=== PATIENT | female | born 1955 | race Caucasian/White ===

== ENCOUNTER 2019-12-10 12:26 | Outpatient (CLI) | payer MEDICARE, SELFPAY ==
--- NOTE | ~2019-12-10 | XR_ITS ---
EXAMINATION: XR lg joint inject/asp w image DATE: 12/10/2019 13:36 INDICATION: Right sacroiliac joint pain TECHNIQUE: A time-out was performed to verify the patient's name, date of , and procedure to b e performed. The procedure including the risks, benefits, and alternatives was discussed with the pat ient. Risks discussed included bleeding and infection. The patient understood the risks and agreed to proceed. The skin overlying the right sacroiliac joint was prepped and draped in usual sterile fash ion. Anesthetic was administered with 1% lidocaine subcutaneously. A 22 G needle was advanced under fluoroscopic guidance into the joint. Injection of 0.4 mL of Omnipaque 240 confirmed intra-articula r position of the needle. Subsequently, injectate consisting of 5 mm of a 4:1 mixture of 1% lidocain e: 40 mg Kenalog for a total dosage of 40 mg Kenalog was instilled. Washout of contrast was seen conf irming intra-articular administration. The needle was removed and the entry site was cleaned and dres sed. There were no immediate complications. Fluoroscopy exposure time was 0.5 minutes. The total num camille of images was 3. FINDINGS: Real-time fluoroscopy demonstrates the needle in the right sacroiliac joint. Patient's pain prior to procedure:5/10. Patient's pain following the procedure: 2/10. IMPRESSION: 1. Right sacroiliac joint injection of local anesthetic and steroid with decrease in the patient's pr esenting pain. Reviewed, dictated and finalized at location A. IMPRESSION: 1. Right sacroiliac joint injection of local anesthetic and steroid with decrea se in the patient's presenting pain.
== END 2019-12-10 12:27 | disposition home or self-care (01) ==
PROVIDERS: Visit Provider Nurse Practitioner Adult Health
DX: M53.3 Sacrococcygeal disorders, not elsewhere classified (principal)
CPT/HCPCS: 20610; 77002; J3301; Q9966

== ENCOUNTER → 2020-03-16 09:41 | Outpatient (CLI) | payer MEDICARE, SELFPAY ==
--- NOTE | ~2020-03-16 | MM_ITS ---
EXAMINATION: MM screening nilda BI w smith HISTORY: Screening mammogram, family history of breast cancer in her mother. TECHNIQUE: Craniocaudal and mediolateral oblique 3-D tomosynthesis images were obtained and synthetic 2-D images were generated. CAD analysis was submitted and interpreted. COMPARISON: 02/01/2018, 09/15/2016 BREAST PARENCHYMAL COMPOSITION: The breasts are almost entirely fatty. FINDINGS: There is no evidence of suspicious mass, calcification, or architectural distortion to sugg est malignancy in either breast. There has been no suspicious interval change. IMPRESSION: 1. No mammographic evidence of malignancy. 2. Recommend routine screening mammography in one year. BI-RADS Category 1: Negative Reviewed, dictated and finalized at location A.
== END ==
DX: Z12.31 Encounter for screening mammogram for malignant neoplasm of breast (principal)
CPT/HCPCS: 77063; 77067

== ENCOUNTER 2021-03-08 16:22 | Outpatient (CLI) | payer MEDICARE, SELFPAY ==
--- NOTE | ~2021-03-08 | US_ITS ---
US thyroid 03/08/2021 16:52 Indication: Status post thyroidectomy. Procedure: High-resolution ultrasound of the thyroid bed Comparison: 03/09/2017 Findings: There is normal echotexture in the thyroid bed. No discrete mass identified. Impression: 1: No residual thyroid tissue. No abnormalities in the thyroid bed. Reviewed, dictated and finalized at location A. Impression: 1: No residual thyroid tissue. No abnormalities in the thyroid bed.
== END 2021-03-08 16:23 | disposition home or self-care (01) ==
PROVIDERS: Visit Provider Internal Medicine Endocrinology, Diabetes & Metabolism
DX: C73 Malignant neoplasm of thyroid gland (principal)
CPT/HCPCS: 76536

== ENCOUNTER 2022-06-17 19:26 | Emergency (ER) | payer MEDICARE, SELFPAY ==
[2022-06-17] VITALS (23 sets, daily range): BP systolic 121–157; BP diastolic 53–96; PULSE 48–82; RESP 12–35; TEMP 36.6–36.8; O2SAT 72–100
--- NOTE | ~2022-06-17 | XR_ITS ---
EXAMINATION: XR chest 2V DATE: 06/17/2022 20:38 INDICATION: Chest pain. TECHNIQUE: Frontal and lateral views of the chest were obtained. COMPARISON: Chest 2 views 07/23/2008 FINDINGS: There is no pneumonia, pleural effusion, or pneumothorax. Cardiomegaly is noted. There are changes of anterior fusion procedure in cervical spine. Surgical clips in the right upper quadrant ar e likely from cholecystectomy. There is mild chronic height loss of multiple midthoracic vertebral camryn dies. IMPRESSION: 1. Cardiomegaly. Reviewed, dictated and finalized at location A. ER COMPOUNDER MIXER IMPRESSION: 1. Cardiomegaly.
--- NOTE | ~2022-06-17 | CT_ITS ---
EXAMINATION: CTA chest PE protocol DATE: 06/17/2022 22:32 INDICATION: Midsternal chest pain. TECHNIQUE: Computed tomography angiography (CTA) of the chest was performed with 100 mL Omnipaque-350 intravenous contrast timed to evaluate the pulmonary arteries. Coronal maximum intensity projection 3D-reconstructions were created by the technologist. Automated exposure control and iterative reconst ruction technique were employed. The dose-length product was 1002.22 mGy-cm. COMPARISON: Chest 2 views 06/17/2022 FINDINGS: There are multiple 1 to 2 mm nodules in the lungs, likely benign. There is a pneumatocele i n right lower lobe. No pleural effusion. The heart size is normal. No pericardial effusion. There is no pulmonary embolus. The central pulmonary arteries are enlarged, consistent with pulmonary arterial hypertension. There is a small sliding hiatal hernia. There are changes of cholecystectomy. There ar e changes of anterior fusion procedure in cervical spine. There is moderate thoracic spondylosis. The re are bridging endplate osteophytes at multiple levels in the spine, consistent with diffuse idiopat hic skeletal hyperostosis (DISH). There is mild chronic height loss of multiple vertebral bodies. IMPRESSION: 1. No pulmonary embolus. 2. Small sliding hiatal hernia. Reviewed, dictated and finalized at location A. PER COUNTERS
--- NOTE | 2022-06-17 20:08 | ECG_ITS ---
Measurements Intervals Hope Rate: 47 P: 36 CO: 209 QRS: 31 QRSD: 101 T: 66 QT: 434 QTc: 386 Interpretive Statements SINUS BRADYCARDIA OTHERWISE UNREMARKABLE ECG NO PREVIOUS ECG AVAILABLE FOR COMPARISON Electronically Signed On 06-18-2022 9:45:30 FURNITURE ASSEMBLER AND INSTALLER by Eric Mckeon M.D.
--- NOTE | 2022-06-17 20:37 | ED.CHESTPAIN ---
HPI - Chest Pain General Chief Complaint: Chest Pain Stated Complaint: chest pain Time Seen by Provider: 06/17/22 20:09 Source: patient and RN notes reviewed Mode of arrival: ambulatory Limitations: no limitations History of Present Illness HPI narrative: This is a 66 year old female who presents for evaluation of chest pain. Patient has noticed midsternal chest soreness for 2 weeks. She states her soreness has been intermittent. She assumed it was due to her having more frequent panic attacks. Today her soreness has been constant and she reports pain in her left shoulder and left neck. She reports she woke up with pain last night. She took her xanax and she fell back asleep. She woke up this morning with her pain. She denies associated nausea, diaphoresis, sob or dizziness. She reports her symptoms are not worse with exertion. She denies heart disease. She had stress test in 2001. Related Data Allergies Allergy/AdvReac Type Severity Reaction Status Date / Time No Known Allergies Allergy Unknown Verified 07/23/08 22:01 NKDA Allergy Mild Uncoded 07/23/08 17:28 Review of Systems Constitutional: Constitutional: Denies weakness Cardiovascular: Cardiovascular: Reports chest pain, Denies syncope, Denies rapid heart rate, Denies irregular heart rhythm, Denies leg edema and Denies dyspnea Respiratory: Respiratory: Denies chest congestion, Denies hemoptysis, Denies excessive phlegm production and Denies dyspnea Gastrointestinal: Gastrointestinal: Denies abdominal pain, Denies hematochezia, Denies diarrhea and Denies vomiting Genitourinary: Genitourinary: Denies hematuria and Denies dysuria Musculoskeletal: Musculoskeletal: Denies joint swelling, Denies loss of height and Denies muscle weakness Neurologic: Denies syncope, Denies focal weakness and Denies weakness PMFSH Past Medical History Medical History (Updated 06/17/22 @ 23:49 by Ivette Cotton MD) Anxiety Hypertension Surgical History Surgical History (Updated 06/17/22 @ 20:45 by Ivette Cotton MD) H/O thyroidectomy History of cholecystectomy Social History Social History (Updated 06/17/22 @ 20:44 by Ivette Cotton MD) Smoking status: Never smoker Exam Narrative: GENERAL: Well-appearing, well-nourished, and in no acute distress. obese HEAD: Normocephalic, atraumatic EYES: PERRLA and EOMI, conjunctiva clear without discharge THROAT:Mucous membranes moist, Oropharynx normal without erythema, exudate, peritonsillar swelling or fluctuance NECK: Supple, without lymphadenopathy or mass RESPIRATORY: No respiratory distress, Airway patent, Respirations non-labored, Clear to auscultation without rales, rhonchi or wheeze HEART: Regular rate and rhythm. No murmur heard. Normal peripheral pulses. reproducible chest wall tenderness ABDOMEN: Soft, nontender, nondistended, normal active bowel sounds. No masses. No rebound or guarding, No organomegaly. EXTREMITIES: No edema, normal strength with full range of motion. SKIN: Warm, dry, normal color without rash NEURO: Alert and oriented x3. CN 2-12 grossly intact. No focal deficits. PSYCH: Normal mood and affect. Neuro: Speech: No Abnormal speech present Course Reevaluation(s) Reevaluation #1: I have discussed with patient that no signs of heart attack. She has had negative troponin x 2. She has heart score of 3 so she is low risk. She has appointment set up with primary care provider. CT was negative for PE. I reviewed CT with patient shows possible pulmonary hypertension. She denies shortness of breath. Her pain is atypical and non exertional. She will be discharged home with follow up and return precautions. Date: 06/17/22 Time: 23:46 Vital Signs Vital signs: Vital Signs Temperature 97.9 F 06/17/22 19:33 Pulse Rate 82 06/17/22 19:33 Respiratory Rate 16 06/17/22 19:33 Oxygen Delivery Room Air 06/17/22 19:33 Temperature 98.1 F 06/18/22 00:05 Pulse Rate 58 L 06/18/22
[2022-06-17 20:43] LABS: Basophils Absolute Auto 0.1 K/mm3 (0.0-0.1); Basophils Percent Auto 0.9 % (0.2-1.2); Eosinophils Absolute Auto 0.2 K/mm3 (0-0.3); Eosinophils Percent Auto 3.1 % (0-4.4); Hematocrit 39.3 % (37.0-47.0); Hemoglobin 12.6 g/dL (12.0-15.0); Immature Granulocyte Absolute 0.01 K/mm3 (0.00-0.031); Immature Granulocyte Percent A 0.1 % (0-0.5); Lymphocytes Absolute Auto 2.63 K/mm3 (0.9-3.2); Lymphocytes Percent Auto 39.2 % (18.3-44.2); Mean Corpuscular HGB Conc 32.1 g/dl (32-36); Mean Corpuscular Hemoglobin 29.6 pg (26-34); Mean Corpuscular Volume 92.5 fl (80-100); Mean Platelet Volume 9.1 fl (7.4-10.4); Monocytes Absolute Auto 0.7 K/mm3 (0.1-0.6); Monocytes Percent Auto 10.1 % (2.6-8.5); Neutrophils Absolute Auto 3.1 K/mm3 (1.3-6.7); Neutrophils Percent Auto 46.6 % (45.5-73.1); Platelet Count Result 272 k/mm3 (150-375); Red Blood Count 4.25 M/mm3 (4.2-5.4); Red Cell Distribution Width 14.6 % (11.5-14.5); White Blood Count 6.7 K/mm3 (4.5-10.0)
[2022-06-17 20:54] LABS: Prothrombin Time 13.2 Seconds (11.1-14.7)
[2022-06-17 20:55] LABS: Alanine Aminotransferase 20 U/L (6-35); Albumin Level 3.9 g/dL (3.5-5.1); Alkaline Phosphatase 84 U/L (38-126); Anion Gap 5 mmol/L (8-16); Aspartate Amino Transferase 27 U/L (14-36); Bilirubin,Total 0.4 mg/dL (0.2-1.3); Blood Urea Nitrogen 23 mg/dL (7-17); Calcium 8.5 mg/dL (8.4-10.2); Carbon Dioxide 30 mmol/L (22-30); Chloride 103 mmol/L (98-107); Estimated CRCL calculation 56 ml/min; Estimated Glomerular Filt Rate 45; Glucose 116 mg/dL (65-110); Lipase 83 U/L (23-300); Partial Thromboplastin Time 28.6 SECONDS (22.3-36.8); Potassium 4.5 mmol/L (3.4-5.0); Sodium 138 mmol/L (137-145)
[2022-06-17 21:06] LABS: Troponin I < 0.012 ng/mL (0.000-0.034)
[2022-06-17] MEDS: ASPIRIN 81 MG CHEWABLE TABLET 324 MG PO (21:28)
[2022-06-17 22:02] LABS: D Dimer 0.63 ug/mL (<0.48)
[2022-06-17] MEDS: KETOROLAC 15 MG/ML VIAL (*BKC) IV PUSH (23:03)
[2022-06-17 23:40] LABS: Troponin I < 0.012 ng/mL (0.000-0.034)
[2022-06-18 00:05] VITALS: BP 127/75; PULSE 58; RESP 18; TEMP 36.7; O2SAT 100
== END 2022-06-18 00:07 | disposition home or self-care (01) ==
PROVIDERS: Emergency Provider General Practice
DX: R07.89 Other chest pain (principal); I10 Essential (primary) hypertension; E89.0 Postprocedural hypothyroidism; K44.9 Diaphragmatic hernia without obstruction or gangrene; I51.7 Cardiomegaly; R00.1 Bradycardia, unspecified
CPT/HCPCS: 36415; 71046; 71275; 80053; 83690; 84484; 85025; 85380; 85610; 85730; 93005; 96374; 99284; A9270; J1885; Q9967

== ENCOUNTER 2023-03-03 10:00 | Outpatient (RCR) | payer MEDICARE, SELFPAY ==
--- NOTE | 2023-01-12 14:42 | OPREHPOC ---
Outpatient Therapy Plan of Care This is a Multidisciplinary Plan of Care that may contain components documented by all disciplines (PT, OT, and ST.) PT Problem 1 PT Problem #1 Knowledge Deficit PT Goal 1 Goal 1. Patient will perform independent HEP Target Visit 4 PT Goal 2 Goal 2. Patient will verbalize urge suppression strategies Target Visit 4 PT Problem 2 PT Problem #2 Pain PT Goal 1 Goal 1. Patient will tolerate pelvic exam without pain Target Visit 4 PT Goal 2 Goal 2. Patient will report pain with urination no higher than 1/10 Target Visit 4 PT Problem 3 PT Problem #3 Impaired Strength PT Goal 1 Goal 1. Improve pelvic floor strength to 3/5 to decrease incontinence
--- NOTE | 2023-01-12 14:42 | PTOPEVAL1 ---
Assessment and note entered by Renae Gomez DPT Evaluation Information Assessment Status Evaluation Subjective Information Pt reports she had a UTI in early November, then symptoms came back a few weeks later but urine culture was negative. Was sent to a urologist and had a CT scan which was negative. States she is getting a lot of pain with urination and also pain into her flanks R>L. Highest pain 10/10 and lowest 0/10. Some urinary incontinence, a few times a day. Reports urgency and can only hold 30 seconds . BM typically once a day without pain. Denies history of pelvic pain, history of 2 C- sections. Voices that when she is having a lot of pain she does not want to do anything. Pt is retired. Returns to [place] in January. Patient goal: get rid of pain. No pelvic/flank pain prior to November. Reported Pain Level Pain Score 8: Self Report Assessment PT Clinical Summary The patient is presenting to skilled therapy with painful urination, flank pain, and urinary urgency . She presents with pain with palpation of pelvic floor muscles as well as overall decreased pelvic floor strength and endurance which are contributing to her pain and urinary symptoms. She will highly benefit from therapy to address these impairments and safely return to prior level of function. Plan of Care Interventions Electrical Stimulation,Hot Pack/Cold Pack,Manual Therapy,Neuro Re-education,Patient/Caregiver Education,Therapeutic Activities,Therapeutic Exercise PT Services Indicated Yes Treatment Frequency and 1 time a week for 3 weeks Duration These treatments will address the objective and functional deficits as defined above. The patient will be advanced safely and appropriately in order for the patient to progress towards his/her prior level of function. Additional exercises will be introduced and as well as a comprehensive home exercise program upon discharge, if needed, ?to ensure carryover of functional gains achieved in the clinic. This treatment plan has been reviewed and agreement upon by the patient.
--- NOTE | 2023-02-03 12:22 | OPREHPOC ---
Outpatient Therapy Plan of Care This is a Multidisciplinary Plan of Care that may contain components documented by all disciplines (PT, OT, and ST.) PT Problem 1 PT Problem #1 Knowledge Deficit PT Goal 1 Goal 1. Patient will perform independent HEP Target Visit 9 Progress Partially Met Comment new HEP added today PT Goal 2 Goal 2. Patient will verbalize urge suppression strategies Target Visit 9 Progress Not Met PT Problem 2 PT Problem #2 Pain PT Goal 1 Goal 1. Patient will tolerate pelvic exam without pain Target Visit 4 Progress Met PT Goal 2 Goal 2. Patient will report pain with urination no higher than 1/10 Target Visit 9 Progress Partially Met PT Problem 3 PT Problem #3 Impaired Strength PT Goal 1 Goal 1. Improve pelvic floor strength to 3/5 to decrease incontinence Target Visit 9 Progress Not Met PT Goal 2 Goal 2. Improve pelvic floor endurance to 10 seconds to decrease incontinence Target Visit 9
--- NOTE | 2023-02-03 12:22 | PTOPPROG ---
Assessment and note entered by Renae Gomez DPT Evaluation Information Assessment Status Progress Subjective Information Highest pain in last week 3/10 and lowest 0/10. Feels great with therapy. States she is able to walk better and has returned to walking for exercise because her pain is lower. Can hold urine 2-5 minutes and urinary incontinence maybe every other day . Still would like to further address pain and incontinence. Assessment PT Clinical Summary The patient has made good progress in therapy so far and reports greatly decreased pain to 3/10 highest. She reports improvements in her ability to walk without pain, and demonstrates improved hip strength, no tenderness to palpation of hip or pelvic floor musculature, and demonstrates slight pelvic floor endurance improvements. She will continue to benefit from skilled therapy to further address pain and incontinence in order to return to prior level of function. Plan of Care Interventions Manual Therapy,Neuro Re-education,Patient/ Caregiver Education,Therapeutic Activities, Therapeutic Exercise PT Services Indicated Yes Treatment Frequency and 1 time a week for 4 visits Duration These treatments will address the objective and functional deficits as defined above. The patient will be advanced safely and appropriately in order for the patient to progress towards his/her prior level of function. Additional exercises will be introduced and as well as a comprehensive home exercise program upon discharge, if needed, ?to ensure carryover of functional gains achieved in the clinic. This treatment plan has been reviewed and agreement upon by the patient.
--- NOTE | 2023-03-03 10:27 | OPREHPOC ---
Outpatient Therapy Plan of Care This is a Multidisciplinary Plan of Care that may contain components documented by all disciplines (PT, OT, and ST.) PT Problem 1 PT Problem #1 Knowledge Deficit PT Goal 1 Goal 1. Patient will perform independent HEP Target Visit 9 Progress Met Comment new HEP added today PT Goal 2 Goal 2. Patient will verbalize urge suppression strategies Target Visit 9 Progress Met PT Problem 2 PT Problem #2 Pain PT Goal 1 Goal 1. Patient will tolerate pelvic exam without pain Target Visit 4 Progress Met PT Goal 2 Goal 2. Patient will report pain with urination no higher than 1/10 Target Visit 9 Progress Met PT Problem 3 PT Problem #3 Impaired Strength PT Goal 1 Goal 1. Improve pelvic floor strength to 3/5 to decrease incontinence Target Visit 9 Progress Not Met PT Goal 2 Goal 2. Improve pelvic floor endurance to 10 seconds to decrease incontinence Target Visit 9 Progress Partially Met Comment improved to 8 seconds
--- NOTE | 2023-03-03 10:27 | PTOPDC ---
Assessment and note entered by Renae Gomez DPT Evaluation Information Assessment Status Discharge Subjective Information Highest pain in the last week 6-7/10 after drinking iced tea over the weekend. Lowest pain 0/ 10. Most days is not having pain at this point. Incontinence maybe 2 times in the last week, again after drinking iced tea. Overall feels that therapy is continuing to help and her pain has significantly decreased and is able to control her bladder more. Can hold urge to void variable amounts of time but has been able to hold longer like when getting her hair done or grocery shopping. Reported Pain Level Pain Score 0: Self Report Assessment PT Clinical Summary The patient has made good progress in therapy and reports significant decreases to her pain and decreased frequency of incontinence. She demonstrates improved pelvic floor endurance and improved core strength. Due to her progress, discharge is recommended at this time. She has been educated to continue her HEP and contact MD and/or PT as needed. Plan of Care PT Services Indicated No
== END 2023-03-03 11:57 | disposition home or self-care (01) ==
LOC: ANHPT 10:00
PROVIDERS: Visit Provider Obstetrics & Gynecology
DX: R10.2 Pelvic and perineal pain (principal); R10.9 Unspecified abdominal pain; R30.0 Dysuria; N39.41 Urge incontinence
CPT/HCPCS: 97110; 97112; 97140; 97162; 97530

== ENCOUNTER 2024-03-03 13:02 | Observation (INO) | payer MEDICARE, SELFPAY ==
[2024-03-03] VITALS (7 sets, daily range): BP systolic 119–153; BP diastolic 55–97; PULSE 48–68; RESP 15–20; TEMP 36.4–36.6; O2SAT 96–100; BMI 46.7
--- NOTE | ~2024-03-03 | CT_ITS ---
CT brain wo con Ordering provider: Keerthi Wynne MD History: 68 years Female with . r/o cva . Comparison: July 08, 2009 Technique: CT of the head without contrast. Radiation reduction technique utilized.The dose-length product was 605.33 mGy-cm. FINDINGS: BRAIN PARENCHYMA AND CSF SPACES: No midline shift, mass effect or hemorrhage. The brain parenchyma a nd CSF spaces are otherwise normal. VISUALIZED PARANASAL SINUSES: Well aerated. MASTOIDS: Well aerated. BONES: The bones appear intact. SOFT TISSUES: Visualized nasopharynx is normal. Superficial soft tissues are normal. IMPRESSION: No acute intracranial findings. Reviewed, dictated and finalized at location A.
--- NOTE | ~2024-03-03 | XR_ITS ---
XR chest 1V Ordering provider: Keerthi Wynne MD History: 68 years Female with . r/o CVA, LEFT SIDED WEAKNESS . Comparison: June 17, 2022 FINDINGS: MEDIASTINUM: The cardiac silhouette is slightly enlarged. LUNGS: No , effusions or pneumothorax. Minimal opacification the left costophrenic angle which may be atelectatic versus focal pneumonia. Clinical correlation advised. OTHER: No free air under the diaphragm. Degenerative changes of the spine. IMPRESSION: Opacification the left costophrenic angle which may indicate atelectasis versus pneumonia. Clinical c orrelation advised Reviewed, dictated and finalized at location A. IMPRESSION: Opacification the left costophrenic angle which may indicate atelectasis versus pneumonia. Clinical correlation advised
--- NOTE | ~2024-03-03 | CT_ITS ---
CTA brain carotid Ordering provider: Mei Fontaine PA-C History: . left sided paresthesias . Comparison: None. Technique: CT angiogram head and neck was performed following timed intravenous injection of contrast . Thin slice axial images and reformatted coronal images were obtained. Three dimensional reformatted images of the brain were also obtained using a [employer] workstation. Radiation reduction technique ut ilized.The dose-length product was 1059.86 mGy-cm. 100 mL Omnipaque 350 was given IV. FINDINGS: HEAD: --ANTERIOR AND MIDDLE CEREBRAL ARTERIES AND BRANCHES: Normal caliber and contour. --INTERNAL CAROTID ARTERIES: Mild atheromatous disease but no significant stenosis. No occlusion. --BASILAR ARTERY AND BRANCHES: Normal caliber and contour. No atheromatous disease. --POSTERIOR CEREBRAL ARTERIES: Normal caliber and contour --POSTERIOR COMMUNICATING ARTERIES: The left demonstrated. The right 9is not visualized which is prob ably related to congenital absence or small size. --ANEURYSM: None visualized. --BRAIN: Please refer to report of CT head performed the same day. --BONES AND SUPERFICIAL SOFT TISSUES: Please refer to report of CT head performed the same day. --PARANASAL SINUSES AND MASTOIDS: Please refer to report of CT head done the same day. NECK: --RIGHT CERVICAL CAROTID SYSTEM: Normal caliber and contour. Percent stenosis per NASCET criteria is 0%. No carotid dissection. Otherwise, no significant atheromatous disease or stenosis of the cervica l carotid system. --LEFT CERVICAL CAROTID SYSTEM: Normal caliber and contour. Percent stenosis per NASCET criteria is 0%.0 No carotid dissection. Otherwise, no significant atheromatous disease or stenosis of the cervical carotid system. --VERTEBRAL ARTERIES: Dominant left vertebral artery. Normal caliber and contour. --VISUALIZED AORTIC ARCH AND BRANCHING VESSELS: Mild atheromatous disease but no significant stenosis . --SOFT TISSUES: Normal. --CERVICAL SPINE: Age appropriate degenerative changes. Postoperative changes. IMPRESSION: CTA head and neck. Percent stenosis per NASCET criteria is 0%. No evidence of occlusion or significant stenosis seen in the intracranial vessels. Reviewed, dictated and finalized at location A. IMPRESSION: CTA head and neck. Percent stenosis per NASCET criteria is 0%. No evidence of occlusion or significant stenosis seen in the intracranial vesse ls.
--- NOTE | ~2024-03-03 | MR_ITS ---
EXAMINATION: MR brain/brain stem wo/w con DATE: 03/04/2024 14:45 INDICATION: Left-sided numbness. Migraine headache. TECHNIQUE: Magnetic resonance imaging (MRI) of the brain and brainstem was performed without and with 19 mL MultiHance intravenous contrast. COMPARISON: Head CT 03/03/2024 FINDINGS: There is no intracranial hemorrhage, acute infarction, or abnormal intracranial mass lesion . There are scattered areas of nonspecific increased T2-weighted signal intensity in the cerebral whi te matter, which is within normal limits for the patient's age. The ventricles are normal in size. Th ere is minimal mucosal thickening in the paranasal sinuses. There are likely changes of ocular lens r eplacement surgeries. The mastoid air cells are normal. IMPRESSION: 1. Normal aging brain. Reviewed, dictated and finalized at location A. IMPRESSION: 1. Normal aging brain.
--- NOTE | 2024-03-03 13:26 | PC.NURSE ---
Patient has lesser sensation on the left side. Patient has no drift or weak back tender paper machine.
--- NOTE | 2024-03-03 13:59 | ECG_ITS ---
Test Date: 2024-03-03 14:08:37 Measurements Intervals Gladys Rate: 51 P: 35 IA: 201 QRS: 20 QRSD: 93 T: 10 QT: 410 QTc: 378 Interpretive Statements SINUS BRADYCARDIA INCOMPLETE RIGHT BUNDLE BRANCH BLOCK LOW QRS VOLTAGE IN PRECORDIAL LEADS CONSIDER INFERIOR INFARCT, AGE INDETERMINATE BORDERLINE ST-T WAVE ABNORMALITY- ANTERIOR LEADS BASELINE ARTIFACT- I, II, AVR ABNORMAL ECG No previous ECG available for comparison Electronically Signed On 03-03-2024 15:31:16 CDT by Tomas Butts D.O.
[2024-03-03 14:08] LABS: Basophils Absolute Auto 0.1 K/mm3 (0.0-0.1); Basophils Percent Auto 0.7 % (0.2-1.2); Eosinophils Absolute Auto 0.1 K/mm3 (0-0.3); Eosinophils Percent Auto 1.8 % (0-4.4); Hematocrit 39.5 % (37.0-47.0); Hemoglobin 12.7 g/dL (12.0-15.0); Immature Granulocyte Absolute 0.02 K/mm3 (0.00-0.031); Immature Granulocyte Percent A 0.3 % (0-0.5); Lymphocytes Absolute Auto 2.01 K/mm3 (0.9-3.2); Lymphocytes Percent Auto 30.1 % (18.3-44.2); Mean Corpuscular HGB Conc 32.2 g/dl (32-36); Mean Corpuscular Hemoglobin 28.5 pg (26-34); Mean Corpuscular Volume 88.6 fl (80-100); Mean Platelet Volume 9.3 fl (7.4-10.4); Monocytes Absolute Auto 0.5 K/mm3 (0.1-0.6); Neutrophils Percent Auto 60.1 % (45.5-73.1); Platelet Count Result 300 k/mm3 (150-375); Red Blood Count 4.46 M/mm3 (4.2-5.4); White Blood Count 6.7 K/mm3 (4.5-10.0)
[2024-03-03 14:18] LABS: Alanine Aminotransferase 15 U/L (6-35); Albumin Level 3.7 g/dL (3.5-5.1); Alkaline Phosphatase 65 U/L (38-126); Anion Gap 8 mmol/L (4-12); Aspartate Amino Transferase 21 U/L (14-36); Bilirubin,Total 0.3 mg/dL (0.2-1.3); Blood Urea Nitrogen 20 mg/dL (7-17); Calcium 8.8 mg/dL (8.4-10.2); Carbon Dioxide 25 mmol/L (22-30); Chloride 105 mmol/L (98-107); Estimated CRCL calculation 53 ml/min; Estimated Glomerular Filt Rate 45; Glucose 132 mg/dL (65-110); Potassium 4.2 mmol/L (3.4-5.0); Sodium 138 mmol/L (137-145)
[2024-03-03 14:21] LABS: Prothrombin Time 13.1 Seconds (11.1-14.7)
[2024-03-03 14:22] LABS: Partial Thromboplastin Time 29.6 Seconds (22.3-36.8)
[2024-03-03 14:30] LABS: Troponin I < 0.012 ng/mL (0.000-0.034)
--- NOTE | 2024-03-03 14:30 | ED.NEUROSD ---
HPI - Neuro Symptoms/Deficit General Chief Complaint: Neuro Symptoms/Deficit <Mei Fontaine PA-C - Last Filed: 03/04/24 02:18> Stated Complaint: dizziness, nausea, left-sided numbness <CLIF Sanchez Last Filed: 03/04/24 02:18> Time Seen by Provider: 03/03/24 14:07 <CLIF Sanchez Last Filed: 03/04/24 02:18> Source: patient <CLIF Sanchez Last Filed: 03/04/24 02:18> Mode of arrival: ambulatory <CLIF Sanchez Last Filed: 03/04/24 02:18> Limitations: no limitations <CLIF Sanchez Last Filed: 03/04/24 02:18> History of Present Illness HPI Narrative: This is a 68 year old female that presents to the ER for evaluation of numbness to the left side of her body. Reports she woke up with numbness in her left arm, leg and side of her face. She has also felt a little dizzy today. Reports associated nausea. Denies focal weakness. <CLIF Sanchez Last Filed: 03/04/24 02:18> Related Data Home Medications: Home Medications Medication Instructions Recorded Confirmed alprazolam 0.25 mg tablet 0.25 mg PO Q6H PRN Anxiety 03/03/24 03/03/24 escitalopram oxalate 20 mg tablet 10 mg PO DAILY 03/03/24 03/03/24 estradiol 0.01% (0.1 mg/gram) 1 appful vaginal WEEKLY 03/03/24 03/03/24 vaginal cream gabapentin 300 mg capsule 600 mg PO HS 03/03/24 03/03/24 levothyroxine 150 mcg tablet 125 mcg PO USEASDIRECTD 03/03/24 03/03/24 (Synthroid) lisinopril 20 mg tablet 20 mg PO HS 03/03/24 03/03/24 <CLIF Sanchez Last Filed: 03/04/24 02:18> Allergies/Adverse Reactions: Allergies Allergy/AdvReac Type Severity Reaction Status Date / Time No Known Allergies Allergy Unknown Verified 03/03/24 20:33 <Mei Fontaine PA-C - Last Filed: 03/04/24 02:18> Review of Systems Review of Systems: CONSTITUTIONAL: Denies fever CARDIOVASCULAR: Denies chest pain RESPIRATORY: Denies dyspnea. GASTROINTESTINAL: Reports nausea NEUROLOGIC: Reports numbness. Denies weakness. <Mei Fontaine PA-C - Last Filed: 03/04/24 02:18> All systems reviewed & are unremarkable except as noted in HPI and below <Mei Fontaine PA-C - Last Filed: 03/04/24 02:18> [facility] Past Medical History Medical History: Medical History (Updated 03/05/24 @ 10:57 by Viktoriya Gillespie APRN) Anxiety Arthritis Dizziness History of anesthesia problem small airway Hypertension Metastatic melanoma Migraine Sciatica Thyroid cancer <CLIF Sanchez Last Filed: 03/04/24 02:18> Surgical History Surgical History: Surgical History H/O thyroidectomy History of bilateral knee arthroplasty History of History of cataract extraction History of cholecystectomy <CLIF Sanchez Last Filed: 03/04/24 02:18> Family History Family History: Family History Father Hypertension Congestive heart failure Acute myocardial infarction Skin cancer Mother Colorectal cancer Breast cancer <CLIF Sanchez Last Filed: 03/04/24 02:18> Social History Social History: Social History Smoking status: Never smoker Alcohol intake: never Substance use: never Substance use type: does not use Do You Feel Safe in your Home?: Yes Lack of Transportation: No Lack of Food: Never True Current Housing: I Have Housing Concerned About Future Housing: No Difficulty Paying Gas/Electric Bills: No Difficulty Paying for Meds: No Currently Unemployed: No Education: Master's Degree or Higher Difficulty w/ Childcare or Family Care: No Spiritual care concerns: No <Mei Fontaine PA-C - Last Filed: 03/04/24 02:18> Exam Narrative: GENERAL: Well-appearing, well-nourished, and in no acute distress. HEAD: Normocephalic, atraumatic. EYES: PERRL
[2024-03-03] MEDS: ASPIRIN 325 MG TABLET PO (18:32)
--- NOTE | 2024-03-03 19:11 | PM.IMHP ---
H&P: HPI History of Present Illness Date/Time: 03/03/24 19:11 Chief Complaint: Left Sided Numbness Narrative: 68 y/o F presents here with focal numbness with PMH of migraines, sciatica, HTN, Arthritis, thyroid cancer s/p thyroidectomy, stage IV melanoma, and anxiety. The patient presents here from home with left-sided numbness. The patient reports she went to bed at 11 pm yesterday (03/02) with left eye pain, otherwise no deficits and was in her normal health. Patient woke up this morning at 8:30 and discovered focal numbness effecting her LLE, LUE, and left side of her face. She reports dizziness, nausea, and left-sided numbness upon awakening. Further described the dizziness as if she was on a ship and like wall hangings were moving all the wall. Ambulated this evening post-admission and reports feeling off balance when walking, not weakness but feels not as strong on left. Focal numbness is not accompanied by focal weakness, dysarthria, word-finding difficulty, changes in vision, or difficulty swallowing. Patient denies history of CVA. No recent falls or trauma. The patient is not on anticoagulation. Initial VS at presentation: 97.9? F, HR 68, RR 16, 146/92, and 99% on RA. ED workup showed: No leukocytosis, no anemia, normal coags, creatinine 1.2 and GFR 45 (same as in 2021), glucose 132, initial troponin negative. Head CT showed no acute intracranial findings. CXR showed opacification of the left costophrenic angle which may indicate atelectasis versus pneumonia. CTA of the head/neck showed no evidence of occlusion or significant stenosis. NASCET criteria is 0%. Review of Systems Review of Systems: All systems reviewed & are unremarkable except as noted in HPI and below PMFSH Past Medical History Medical History Anxiety Arthritis History of anesthesia problem small airway Hypertension Metastatic melanoma Migraine Sciatica Thyroid cancer Surgical History Surgical History H/O thyroidectomy History of bilateral knee arthroplasty History of History of cataract extraction History of cholecystectomy Family History Family History Father Hypertension Congestive heart failure Acute myocardial infarction Skin cancer Mother Colorectal cancer Breast cancer Social History Social History Smoking status: Never smoker Alcohol intake: never Substance use: never Substance use type: does not use Do You Feel Safe in your Home?: Yes Lack of Transportation: No Lack of Food: Never True Current Housing: I Have Housing Concerned About Future Housing: No Difficulty Paying Gas/Electric Bills: No Difficulty Paying for Meds: No Currently Unemployed: No Education: Master's Degree or Higher Difficulty w/ Childcare or Family Care: No Spiritual care concerns: No Meds Home Medications and Allergies Home Medications Medication Instructions Recorded Confirmed Type alprazolam 0.25 mg tablet 0.25 mg PO Q6H PRN Anxiety 03/03/24 03/03/24 History escitalopram oxalate 20 mg tablet 10 mg PO DAILY 03/03/24 03/03/24 History estradiol 0.01% (0.1 mg/gram) 1 appful vaginal WEEKLY 03/03/24 03/03/24 History vaginal cream gabapentin 300 mg capsule 600 mg PO HS 03/03/24 03/03/24 History levothyroxine 150 mcg tablet 125 mcg PO USEASDIRECTD 03/03/24 03/03/24 History (Synthroid) lisinopril 20 mg tablet 20 mg PO HS 03/03/24 03/03/24 History Allergies Allergy/AdvReac Type Severity Reaction Status Date / Time No Known Allergies Allergy Unknown Verified 03/03/24 20:33 Vital Signs Vital Signs - 24 hr 03/03/24 13:11 03/03/24 15:14 03/03/24 18:12 Temperature 97.9 F Pulse Rate 68 60 60 Respiratory Rate 16 17 17 Blood Pressure 146/92 H 145/71 H 145/71 H Pul
--- NOTE | 2024-03-03 20:07 | ADMGEN ---
This patient, Diana Ramsay, was admitted to [facility] Surg Room 310-01. Patient/family oriented to hospital policies and general routines including ID bracelet, bed and alarms, visiting hours, pain management, procedures, bathroom and other care routines, personal items, smoking policy, room service/diet, and visiting hours. Information on how to activate the Rapid Response Team has been discussed. Patient/Family are encouraged to report perceived risks to care and to ask questions if they do not understand what they are told or what they should do.
[2024-03-04] VITALS (14 sets, daily range): BP systolic 111–150; BP diastolic 52–89; PULSE 50–75; RESP 13–20; TEMP 36.2–36.8; O2SAT 97–100
--- NOTE | 2024-03-04 | ECHO_ITS ---
Patient Info Name: Diana Ramsay Age: 68 years : 1955 Gender: Female Ht: 65 in Wt: 279 lbs BSA: 2.48 m2 HR: 62 bpm BP: 115 / 64 mmHg Heart Rhythm: Sinus Rhythm Technical Quality: Fair Exam Date: 03/04/2024 11:15 AM Exam Location: Echo Lab Patient Status: Outpatient Admit Date: 03/03/2024 Staff Ordering Physician: Minal Raymond APRN Attending Provider: Spenser Nloan MD Referring Physician: Segundo ROACH; Exam Type: CA echo dop bubble study w con Study Info Indications - Left - sided numbness, C/F CVA Complete two-dimensional, color flow and Doppler transthoracic echocardiogram is performed with agitated saline. Contrast/Agitated Saline Contrast/Ag. Saline: Agitated Saline Amount: 14.00 ml Existing IV Access: Yes IV Access Condition: patent with no signs of infiltration Summary 1. Normal left ventricular size thickness and systolic function. 2. Grade 1 diastolic noncompliance. 3. No valve dysfunction of significance. 4. Agitated saline contrast injection demonstrates no shunt. Left Ventricle Left ventricular chamber dimension is normal. Left ventricular systolic function is normal, estimated at 65-70%. The left ventricular diastolic function is grade I diastolic dysfunction. Right Ventricle Right ventricular chamber dimension is normal. Left Atria Left atrial chamber dimension is normal. Right Atria Right atrial chamber dimension is normal. Atrial Septum Intact interatrial septum visualized by agitated saline imaging. Aortic Valve The aortic valve is normal. Pulmonic Valve The pulmonic valve is not well visualized. Mitral Valve The mitral valve has normal leaflets. Tricuspid Valve The tricuspid valve leaflets are normal. Pericardium/Pleural The pericardium appears normal. Aorta The aortic root size at the sinus of Valsalva is normal. Left Ventricular Outflow Tract Name Value Normal LVOT 2D LVOT Diameter 2.0 cm LVOT Doppler LVOT Peak Gradient 7 mmHg LVOT Mean Gradient 3 mmHg LVOT VTI 26 cm LVOT VTI/AV VTI Ratio 0.8 LVOT Stroke Volume 84 ml LVOT CO 4.5 l/min LVOT CI 1.8 l/min/m2 Pulmonic Valve Name Value Normal PV Doppler PV Peak Gradient 7 mmHg PV Regurgitation Doppler MA Peak End Diastolic Velocity 57 cm/s Mitral Valve Name Value Normal MV Doppler MV Decel Otoe
[2024-03-04] MEDS: LEVOTHYROXINE SODIUM 125 MCG TABLET PO (06:01)
[2024-03-04 06:43] LABS: Hematocrit 39.5 % (37.0-47.0); Hemoglobin 12.5 g/dL (12.0-15.0); Immature Granulocyte Percent A 0.2 % (0-0.5); Lymphocytes Percent Auto 37.8 % (18.3-44.2); Mean Corpuscular HGB Conc 31.6 g/dl (32-36); Mean Corpuscular Hemoglobin 28.2 pg (26-34); Mean Corpuscular Volume 89.2 fl (80-100); Mean Platelet Volume 9.2 fl (7.4-10.4); Monocytes Percent Auto 9.8 % (2.6-8.5); Platelet Count Result 282 k/mm3 (150-375); Red Blood Count 4.43 M/mm3 (4.2-5.4); Red Cell Distribution Width 14.8 % (11.5-14.5); White Blood Count 6.5 K/mm3 (4.5-10.0)
[2024-03-04 06:44] LABS: Basophils Absolute Auto 0.1 K/mm3 (0.0-0.1); Basophils Percent Auto 0.8 % (0.2-1.2); Eosinophils Absolute Auto 0.2 K/mm3 (0-0.3); Eosinophils Percent Auto 3.4 % (0-4.4); Immature Granulocyte Absolute 0.01 K/mm3 (0.00-0.031); Lymphocytes Absolute Auto 2.44 K/mm3 (0.9-3.2); Monocytes Absolute Auto 0.6 K/mm3 (0.1-0.6); Neutrophils Absolute Auto 3.1 K/mm3 (1.3-6.7)
[2024-03-04 06:51] LABS: Hemoglobin A1C 5.8 % (<5.7)
[2024-03-04 06:55] LABS: Alanine Aminotransferase 14 U/L (6-35); Albumin Level 3.5 g/dL (3.5-5.1); Alkaline Phosphatase 64 U/L (38-126); Anion Gap 6 mmol/L (4-12); Aspartate Amino Transferase 22 U/L (14-36); Bilirubin,Total 0.3 mg/dL (0.2-1.3); Blood Urea Nitrogen 21 mg/dL (7-17); Calcium 8.6 mg/dL (8.4-10.2); Carbon Dioxide 30 mmol/L (22-30); Chloride 102 mmol/L (98-107); Cholesterol 186 mg/dL (0-200); Estimated CRCL calculation 53 ml/min; Estimated Glomerular Filt Rate 45; Glucose 88 mg/dL (65-110); HDL Direct 60 mg/dL; Potassium 4.2 mmol/L (3.4-5.0); Sodium 138 mmol/L (137-145); Triglycerides 94 mg/dL (<150)
[2024-03-04 07:06] LABS: LDL Cholesterol Direct 84 mg/dL
[2024-03-04] MEDS: LORazepam INJ (*CRX) 2 MG/ML VIAL 1 MG IV PUSH ×2 (07:51→13:57)
[2024-03-04] MEDS: ATORVASTATIN 40 MG TABLET PO (09:27)
[2024-03-04] MEDS: CLOPIDOGREL BISULFATE 75 MG TABLET PO (09:27)
[2024-03-04] MEDS: ESCITALOPRAM OXALATE 10 MG TABLET PO (09:27)
[2024-03-04] MEDS: ASPIRIN 81 MG ENTERIC TABLET PO (09:27)
--- NOTE | 2024-03-04 10:55 | WPDNEURCNPN ---
Assessment and Plan Assessment and plan (1) Left sided numbness: Code(s): R20.0 - Anesthesia of skin Status: Acute (2) Dizziness: Code(s): R42 - Dizziness and giddiness Status: Acute (3) Hypertension: Qualifiers: Hypertension type: primary hypertension Qualified Code(s): I10 - Essential (primary) hypertension Code(s): I10 - Essential (primary) hypertension Status: Acute Plan Numbness on the left side of the body including her face upper and lower limb raise possibility of cerebrovascular disease involving right hemisphere. Dizziness does seem to bring in the possibility of a brainstem pathology and hence I agree with MRI of the brain. She is unable to go through this this morning after single dose of Ativan due to claustrophobia. I talked to the nurse at length and decided that we can try 1 more dose of Ativan and see if there is a way to get the MRI done today. If there is any difficulty Atarax can be given. She may be given as somewhat of a higher dose of Ativan if her blood pressure allows us to do so. In the meanwhile we should continue to observe her for any neurologic problems. Consult date: 03/04/24 HPI: Diana Ramsay is a 68 year old female With history of onset of dizziness on Monday followed by numbness in the left upper and lower limbs and also in the left side of the face. Symptoms have been fluctuating since that time. She denies any fall or passing out spell. She attributes some of the problem to having disc disease in the neck or lumbar spine however she has not had numbness in the face in the past. she also does not have prior history of episodes of dizziness. She denies any headache or diplopia or difficulty speech or swallowing. No weakness or paralysis in the upper lower limbs. CT scan of the brain and CT angiogram of the head and neck were performed the time of presentation emergency room which did not show any significant abnormalities. An MRI of the brain was attempted this morning however the patient states he is claustrophobic and had problem despite giving her 1 dose of Ativan. She has history of a melanoma stage IV cancer in the past. She also has history of thyroid cancer a few years ago. Apparently her cancer in remission at this time. Review of Systems Review of Systems: Patient states that she has history of disc problem in the neck and lumbar spine. All systems reviewed & are unremarkable except as noted in HPI and below PMFSH Past Medical History Medical History (Updated 03/04/24 @ 11:01 by Nithya Lamb MD) Anxiety Arthritis Dizziness History of anesthesia problem small airway Hypertension Metastatic melanoma Migraine Sciatica Thyroid cancer Surgical History Surgical History H/O thyroidectomy History of bilateral knee arthroplasty History of History of cataract extraction History of cholecystectomy Family History Family History Father Hypertension Congestive heart failure Acute myocardial infarction Skin cancer Mother Colorectal cancer Breast cancer Social History Social History Smoking status: Never smoker Alcohol intake: never Substance use: never Substance use type: does not use Do You Feel Safe in your Home?: Yes Lack of Transportation: No Lack of Food: Never True Current Housing: I Have Housing Concerned About Future Housing: No Difficulty Paying Gas/Electric Bills: No Difficulty Paying for Meds: No Currently Unemployed: No Education: Master's Degree or Higher Difficulty w/ Childcare or Family Care: No Spiritual care concerns: No Meds Home Medications and Allergies Home Medications Medication Instructions Recorded Confirmed Type alprazolam 0.25 mg tablet 0.25 mg PO Q6H PRN Anxiety 0
--- NOTE | 2024-03-04 14:16 | PCOTNOTE ---
Attempted OT evaluation. Pt going down for MRI.
--- NOTE | 2024-03-04 14:58 | PM.IMPN ---
Progress Note: A&P Assessment and Plan (1) Left sided numbness: Code(s): R20.0 - Anesthesia of skin Status: Acute Assessment and Plan: No acute CVA on head CT or head CTA. - admission for observation and telemetry - not candidate for thrombolytics or thrombectomy due to time frame and no LVO on imaging - CXR: opacification the left costophrenic angle which may indicate atelectasis versus pneumonia. Clinical correlation advised - head CT: No acute intracranial findings. - CTA: Percent stenosis per NASCET criteria is 0%. No evidence of occlusion or significant stenosis seen in the intracranial vessels. - neurology consulted, awaiting formal recs - brain MRI w/wo ordered, patient very claustrophobic. 1 mg of Ativan Q 5 minutes x2 ordered for anxiety. MRI brain showed a normal aging brain. - echo w/Bubble ordered - neuro checks Q4 - no dysarthria, facial droop, or dysphagia on exam or noted by patient, heart healthy diet initiated - monitor daily labs, lipid panel, A1C - fall precautions - start Atorvastatin 40 mg PO - start Plavix 75 mg PO - start ASA 81 mg - consider 30 day event monitoring at discharge -PT/OT (2) Hypertension: Qualifiers: Hypertension type: primary hypertension Qualified Code(s): I10 - Essential (primary) hypertension Code(s): I10 - Essential (primary) hypertension Status: Chronic Assessment and Plan: - Orthostatic vital signs: lying BP 128/52, HR 77, Sitting BP 135/71 HR 73, Standing BP 115/72, HR 75. NS @ 100 ml/hr x 500 ml. Plan Diet: Heart healthy GI Prophylaxis: Not currently indicated DVT Prophylaxis: SCDs Lines: Peripheral Code Status: Full code Subjective Date/time seen: 03/04/24 14:58 Interval history: 68 y/o F presents here with focal numbness with PMH of migraines, sciatica, HTN, Arthritis, thyroid cancer s/p thyroidectomy, stage IV melanoma, and anxiety. The patient presents here from home with left-sided numbness. The patient reports she went to bed at 11 pm yesterday (03/02) with left eye pain, otherwise no deficits and was in her normal health. Patient woke up yesterday morning at 8:30 and discovered focal numbness effecting her LLE, LUE, and left side of her face. She reports dizziness, nausea, and left-sided numbness upon awakening. Further described the dizziness as if she was on a ship and like wall hangings were moving all the wall. Ambulated this evening post-admission and reports feeling off balance when walking, not weakness but feels not as strong on left. Focal numbness is not accompanied by focal weakness, dysarthria, word-finding difficulty, changes in vision, or difficulty swallowing. Patient denies history of CVA. No recent falls or trauma. The patient is not on anticoagulation. ED workup showed: No leukocytosis, no anemia, normal coags, creatinine 1.2 and GFR 45 (same as in 2021), glucose 132, initial troponin negative. Head CT showed no acute intracranial findings. CXR showed opacification of the left costophrenic angle which may indicate atelectasis versus pneumonia. CTA of the head/neck showed no evidence of occlusion or significant stenosis. NASCET criteria is 0% Brain MRI today showed a normal aging brain. Neuro consult completed today. BUN 21, Creatinine 1.20, GFR 45, HgbA1C 5.8. Patient reports a headache in the frontal area that is a 1 , frequent, and aching. Patient reports that she feels weird around her left eye and she has dizziness when standing up. Orthostatic vital signs: lying BP 128/52, HR 77, Sitting BP 135/71 HR 73, Standing BP 115/72, HR 75. Review of Systems Review of Systems: All systems reviewed & are unremarkable except as noted in HPI and below Exam Const: General: comfortable and no acute distress Other: , female, nontoxic appearance, obese body habitus HENMT: Face/Nose/Sinus: Normal nares present Mouth: Yes moist mucous membranes Eyes: General: appearan
[2024-03-04] MEDS: SODIUM CHLORIDE 0.9% IV 500 ML 100 ML IV CONT (15:17)
[2024-03-04] MEDS: ALPRAZolam (*CRX) 0.25 MG TABLET PO (20:35)
[2024-03-04] MEDS: GABAPENTIN 300 MG CAPSULE 600 MG PO (20:35)
[2024-03-04] MEDS: lisinopriL 20 MG TABLET PO (20:35)
[2024-03-05] VITALS (9 sets, daily range): BP systolic 110–156; BP diastolic 61–90; PULSE 54–75; RESP 12–18; TEMP 36.3–36.6; O2SAT 96–98
[2024-03-05] MEDS: LEVOTHYROXINE SODIUM 125 MCG TABLET PO (05:32)
[2024-03-05 06:58] LABS: Basophils Absolute Auto 0.1 K/mm3 (0.0-0.1); Basophils Percent Auto 0.8 % (0.2-1.2); Eosinophils Absolute Auto 0.2 K/mm3 (0-0.3); Hematocrit 38.6 % (37.0-47.0); Hemoglobin 12.3 g/dL (12.0-15.0); Immature Granulocyte Absolute 0.01 K/mm3 (0.00-0.031); Immature Granulocyte Percent A 0.2 % (0-0.5); Lymphocytes Absolute Auto 2.02 K/mm3 (0.9-3.2); Lymphocytes Percent Auto 32.3 % (18.3-44.2); Mean Corpuscular HGB Conc 31.9 g/dl (32-36); Mean Corpuscular Hemoglobin 28.5 pg (26-34); Mean Corpuscular Volume 89.6 fl (80-100); Mean Platelet Volume 9.4 fl (7.4-10.4); Monocytes Absolute Auto 0.6 K/mm3 (0.1-0.6); Monocytes Percent Auto 8.8 % (2.6-8.5); Neutrophils Absolute Auto 3.4 K/mm3 (1.3-6.7); Neutrophils Percent Auto 54.9 % (45.5-73.1); Platelet Count Result 270 k/mm3 (150-375); Red Blood Count 4.31 M/mm3 (4.2-5.4); White Blood Count 6.3 K/mm3 (4.5-10.0)
[2024-03-05 07:17] LABS: Alanine Aminotransferase 12 U/L (6-35); Albumin Level 3.5 g/dL (3.5-5.1); Alkaline Phosphatase 59 U/L (38-126); Anion Gap 6 mmol/L (4-12); Aspartate Amino Transferase 24 U/L (14-36); Bilirubin,Total 0.6 mg/dL (0.2-1.3); Blood Urea Nitrogen 21 mg/dL (7-17); Calcium 8.4 mg/dL (8.4-10.2); Carbon Dioxide 28 mmol/L (22-30); Chloride 104 mmol/L (98-107); Estimated CRCL calculation 53 ml/min; Estimated Glomerular Filt Rate 45; Glucose 91 mg/dL (65-110); Sodium 138 mmol/L (137-145)
[2024-03-05] MEDS: CLOPIDOGREL BISULFATE 75 MG TABLET PO (08:20)
[2024-03-05] MEDS: ESCITALOPRAM OXALATE 10 MG TABLET PO (08:20)
[2024-03-05] MEDS: ASPIRIN 81 MG ENTERIC TABLET PO (08:20)
[2024-03-05] MEDS: ACETAMINOPHEN 325 MG TABLET 650 MG PO (08:20)
[2024-03-05] MEDS: ATORVASTATIN 40 MG TABLET PO (08:20)
--- NOTE | 2024-03-05 10:48 | PM.IMPN ---
Progress Note: A&P Assessment and Plan (1) Left sided numbness: Code(s): R20.0 - Anesthesia of skin Status: Acute Assessment and Plan: No acute CVA on head CT or head CTA. - admission for observation and telemetry - not candidate for thrombolytics or thrombectomy due to time frame and no LVO on imaging - CXR: opacification the left costophrenic angle which may indicate atelectasis versus pneumonia. Clinical correlation advised - head CT: No acute intracranial findings. - CTA: Percent stenosis per NASCET criteria is 0%. No evidence of occlusion or significant stenosis seen in the intracranial vessels. - neurology consulted, awaiting formal recs - MRI brain showed a normal aging brain. - echo w/Bubble showed: Summary 1. Normal left ventricular size thickness and systolic function. 2. Grade 1 diastolic noncompliance. 3. No valve dysfunction of significance. 4. Agitated saline contrast injection demonstrates no shunt. - neuro checks Q4 - no dysarthria, facial droop, or dysphagia on exam or noted by patient, heart healthy diet initiated - monitor daily labs - fall precautions - start Atorvastatin 40 mg PO - start Plavix 75 mg PO - start ASA 81 mg - consider 30 day event monitoring at discharge -PT/OT (2) Hypertension: Qualifiers: Hypertension type: primary hypertension Qualified Code(s): I10 - Essential (primary) hypertension Code(s): I10 - Essential (primary) hypertension Status: Chronic Assessment and Plan: - Orthostatic vital signs: lying BP 127/84 HR 62, Sitting BP 134/90 HR 75, Standing BP 156/90, HR 58. - Monitor. (3) Headache: Code(s): R51.9 - Headache, unspecified Status: Acute Assessment and Plan: -Add Tylenol PRN. -Hydrate. Avoid sudden movements. Plan Diet: Heart healthy GI Prophylaxis: Not currently indicated DVT Prophylaxis: SCDs Lines: Peripheral Code Status: Full code Subjective Date/time seen: 03/05/24 10:48 Interval history: 68 y/o F presents here with focal numbness with PMH of migraines, sciatica, HTN, Arthritis, thyroid cancer s/p thyroidectomy, stage IV melanoma, and anxiety. The patient presents here from home with left-sided numbness. The patient reports she went to bed at 11 pm yesterday (03/02) with left eye pain, otherwise no deficits and was in her normal health. Patient woke up yesterday morning at 8:30 and discovered focal numbness effecting her LLE, LUE, and left side of her face. She reports dizziness, nausea, and left-sided numbness upon awakening. Further described the dizziness as if she was on a ship and like wall hangings were moving all the wall. Ambulated this evening post-admission and reports feeling off balance when walking, not weakness but feels not as strong on left. Focal numbness is not accompanied by focal weakness, dysarthria, word-finding difficulty, changes in vision, or difficulty swallowing. Patient denies history of CVA. No recent falls or trauma. The patient is not on anticoagulation. ED workup showed: No leukocytosis, no anemia, normal coags, creatinine 1.2 and GFR 45 (same as in 2021), glucose 132, initial troponin negative. Head CT showed no acute intracranial findings. CXR showed opacification of the left costophrenic angle which may indicate atelectasis versus pneumonia. CTA of the head/neck showed no evidence of occlusion or significant stenosis. NASCET criteria is 0% Brain MRI showed a normal aging brain. Neuro consult completed today. BUN 21, Creatinine 1.20, GFR 45, HgbA1C 5.8. Patient reports a headache in the frontal area that is a 5 , frequent, and aching. Patient reports having migraines in the past and feeling as if she is having a migraine. Patient reports that when she looked at the clock earlier this morning it looked like the hands were double. Patient reports that headache is improving with rest. Patient reports that she feels weird around her left
--- NOTE | 2024-03-05 12:11 | WPDNEUROPN ---
Subjective Date/time seen: 03/05/24 12:11 Interval history: [address] lassiter for the complaints of left-sided numbness along with the dizziness, and hypertension. Numbness involved the face upper and lower extremity consideration was given to the pos sibility of intracranial pathology and MRI of the brain was suggested. Brain MRI is normal, initial head and neck CTA was also normal so as the routine blood studies. echocardiogram was normal with no shunt or valvular dysfunction. At this stage aspirin 81mg daily can be added with the possibility of TIA and with the basically negative workup otherwise Objective Data Vital Signs Vital Signs: Vital Signs - 24 hr 03/04/24 14:00 03/04/24 14:41 03/04/24 14:42 Temperature 36.2 C L 36.2 C L 36.2 C L Pulse Rate 67 73 75 Respiratory Rate 18 18 18 Blood Pressure 128/52 L 135/71 115/72 Pulse Oximetry 98 98 98 Oxygen Delivery 03/04/24 16:00 03/04/24 21:12 03/04/24 20:00 Temperature 36.3 C L 36.4 C Pulse Rate 67 62 55 L Respiratory Rate 13 20 Blood Pressure 111/61 139/72 Pulse Oximetry 100 97 Oxygen Delivery 03/04/24 21:22 03/04/24 21:23 03/04/24 20:00 Temperature Pulse Rate 63 63 Respiratory Rate Blood Pressure 145/77 H 150/77 H Pulse Oximetry 97 97 Oxygen Delivery Room Air 03/05/24 00:00 03/05/24 04:00 03/05/24 05:34 Temperature 36.6 C Pulse Rate 67 60 58 L Respiratory Rate 12 Blood Pressure 131/70 Pulse Oximetry 96 Oxygen Delivery 03/05/24 08:00 03/05/24 08:23 03/05/24 08:21 Temperature 36.3 C L 36.6 C 36.3 C L Pulse Rate 56 L 58 L 62 Respiratory Rate 12 18 12 Blood Pressure 144/76 H 156/90 H 127/84 Pulse Oximetry 98 98 98 Oxygen Delivery 03/05/24 08:22 03/05/24 08:20 Temperature 36.3 C L Pulse Rate 75 Respiratory Rate 12 Blood Pressure 134/90 Pulse Oximetry 98 Oxygen Delivery Room Air Intake/Output Intake/Output: Intake & Output 03/02/24 03/03/24 03/04/24 03/05/24 23:59 23:59 23:59 23:59 Intake Total 740 1200 Balance 740 1200 Meds/Results Medications: Active Medications Generic Name Dose Route Start Last Admin Trade Name Sanchez PRN Reason Stop Dose Admin Acetaminophen 650 mg 03/05/24 08:04 03/05/24 08:20 Acetaminophen 325 Mg Tablet PO 650 mg Q6H PRN Administration Mild Pain (1-3) or Fever Alprazolam 0.25 mg 03/03/24 22:47 03/04/24 20:35 Alprazolam (*Crx) 0.25 Mg Tablet PO 0.25 mg Q6H PRN Administration Anxiety Aspirin 81 mg 03/04/24 09:00 03/05/24 08:20 Aspirin 81 Mg Enteric Tablet PO 81 mg QAM CONSUELO Administration Atorvastatin Calcium 40 mg 03/04/24 09:00 03/05/24 08:20 Atorvastatin 40 Mg Tablet PO 40 mg DAILY CONSUELO Administration Clopidogrel Bisulfate 75 mg 03/04/24 09:00 03/05/24 08:20 Clopidogrel Bisulfate 75 Mg Tablet PO 75 mg QAM CONSUELO Administration Escitalopram Oxalate 10 mg 03/04/24 09:00 03/05/24 08:20 Escitalopram Oxalate 10 Mg Tablet PO 10 mg DAILY CONSUELO Administration Estradiol 1 applic 03/10/24 09:00 Estradiol Vaginal Cream 42.5 Gm VAGINAL WEEKLY CONSUELO Gabapentin 600 mg 03/04/24 21:00 03/04/24 20:35 Gabapentin 300 Mg Capsule PO 600 mg HS CONSUELO Administration Levothyroxine Sodium 125 mcg 03/04/24 06:30 03/05/24 05:32 Levothyroxine Sodium 125 Mcg Tablet PO 125 mcg [id number] CONSUELO Administration Lisinopril 20 mg 03/04/24 21:00 03/04/24 20:35 Lisinopril 20 Mg Tablet PO 20 mg HS CONSUELO Administration Perflutren Lipid Microsphere 0 ml 03/03/24 19:18 Perflutren Lipid Microspheres 1.5 Ml Vial Diluted To 10 Ml Total Volume IV PUSH 03/06/24 19:18 ONCE PRN adequate visualization Protocol Radiology Results: ITS Impressions Head CT 03/03/24 14:42 IMPRESSION: No acute intracranial findings. Chest X-Ray 03/03/24 14:52 IMPRESSION: Opacification the left costophrenic angle which may indicate atelectasis
--- NOTE | 2024-03-05 14:04 | PM.DS ---
DS: Admitting Diagnosis Discharge Date 03/05/2024 Admitting Diagnosis dizziness, nausea, left-sided numbness DS: Discharge Diagnosis Discharge Diagnosis (1) TIA (transient ischemic attack): Code(s): G45.9 - Transient cerebral ischemic attack, unspecified Status: Acute DS: Summary Hospital Course Hospital Course: CXR: opacification the left costophrenic angle which may indicate atelectasis versus pneumonia. Clinical correlation advised - head CT: No acute intracranial findings. EKG: sinus bradycardia - CTA: Percent stenosis per NASCET criteria is 0%. No evidence of occlusion or significant stenosis seen in the intracranial vessels. - neurology consulted - MRI brain showed a normal aging brain. - echo w/Bubble showed: Summary 1. Normal left ventricular size thickness and systolic function. 2. Grade 1 diastolic noncompliance. 3. No valve dysfunction of significance. 4. Agitated saline contrast injection demonstrates no shunt. Started on aspirin 81 mg PO daily and Atorvastatin 40 mg PO at bedtime. Will discharge on Aspirin 81 mg PO daily for possibility of a TIA. Work up otherwise negative. Status at Discharge Functional status at discharge: independent ambulation Overall status at discharge: patient is progressing back to baseline Time Spent with Patient Time attestation: Total time spent providing and/or coordinating discharge services: Time spent: Greater than 30 minutes DS: Data Data Completed and Pending Labs on day of discharge: Labs from last 24 hours 03/05/24 06:13 WBC 6.3 RBC 4.31 Hgb 12.3 Hct 38.6 MCV 89.6 MCH 28.5 MCHC 31.9 L RDW 15.0 H Plt Count 270 MPV 9.4 Immature Gran % (Auto) 0.2 Neut % (Auto) 54.9 Lymph % (Auto) 32.3 [place] % (Auto) 8.8 H Eos % (Auto) 3.0 Baso % (Auto) 0.8 Lymph # (Auto) 2.02 [place] # (Auto) 0.6 Eos # (Auto) 0.2 Baso # (Auto) 0.1 Abs Immat Gran (auto) 0.01 Absolute Neuts (auto) 3.4 Absolute Nucleated RBC 0.000 Nucleated RBC % 0.0 Sodium 138 Potassium 4.0 Chloride 104 Carbon Dioxide 28 Anion Gap 6 BUN 21 H Creatinine 1.20 H Estim Creat Clear Calc 53 Estimated GFR 45 L Glucose 91 Calcium 8.4 Total Bilirubin 0.6 AST 24 ALT 12 Alkaline Phosphatase 59 Total Protein 7.0 Albumin 3.5 Discharge Plan Discharge Attending physician on discharge: Spenser Nolan Consulting providers: Nithya Lamb Discharging Clinician: Viktoriya Gillespie Patient Disposition: Home, Self-Care Activity: october shower Diet: heart healthy Patient Instructions: Antibiotic Form, Transient Ischemic Attack (DC), Pain Management (DC), Ischemic Stroke (DC) Stand Alone Forms: General Discharge Information Follow-up/Referrals: escobar castro [Other] - 2 Weeks Abdiel Grimm MD [Physician] - 2 Weeks Discharge Medications: New aspirin 81 mg Tablet,Delayed Release (Dr/Ec) 81 mg PO QAM Qty: 30 0RF aspirin 81 mg capsule 81 mg PO DAILY Qty: 30 0RF atorvastatin 40 mg Tablet 40 mg PO .bedtime Qty: 30 0RF Continued lisinopril 20 mg tablet 20 mg PO HS alprazolam 0.25 mg tablet 0.25 mg PO Q6H PRN (Reason: Anxiety) levothyroxine [Synthroid] 150 mcg tablet 125 mcg PO USEASDIRECTD Rx Instructions: do not administer on Monday gabapentin 300 mg capsule 600 mg PO HS estradiol 0.01 % (0.1 mg/gram) cream 1 appful VAGINAL WEEKLY Rx Instructions: uses on Monday escitalopram oxalate 20 mg tablet 10 mg PO DAILY Date of admission: 03/03/24 18:29 Primary Care Provider: escobar castro Admitting Provider: Spenser Nolan Attending physician on admission: Spenser Nolan Condition: Stable
== END 2024-03-05 15:40 | disposition home or self-care (01) ==
LOC: ANHED 14:25 → ANH3MEDSUR 19:16
PROVIDERS: Emergency Medicine; Nurse Practitioner Family; Student in an Organized Health Care Education/Training Program; Admitting Provider Internal Medicine; Emergency Provider Physician Assistant; Visit Provider Internal Medicine
DX: G45.9 Transient cerebral ischemic attack, unspecified (principal); R20.0 Anesthesia of skin; R42 Dizziness and giddiness; I10 Essential (primary) hypertension; E89.0 Postprocedural hypothyroidism; Z85.850 Personal history of malignant neoplasm of thyroid; Z85.820 Personal history of malignant melanoma of skin; F41.9 Anxiety disorder, unspecified; Z79.899 Other long term (current) drug therapy
CPT/HCPCS: 36415; 70450; 70496; 70498; 70553; 71045; 80053; 80061; 83036; 83735; 84484; 85025; 85610; 85730; 93005; 93306; 96374; 96375; 96376; 97161; 97165; 99285; A9270; A9577; C8929; G0378; J2060; J7030; Q9967

== ENCOUNTER 2025-01-23 03:16 | Observation (INO) | payer MEDICARE, SELFPAY ==
[2025-01-23] VITALS (16 sets, daily range): BP systolic 98–184; BP diastolic 50–90; PULSE 56–118; RESP 15–20; TEMP 36.4–37; O2SAT 94–100; BMI 51.0
--- NOTE | ~2025-01-23 | NM_ITS ---
EXAMINATION: NM gayathri stress w perfusion DATE: 01/24/2025 13:21 CDT INDICATION: Chest pain TECHNIQUE: Rest images were obtained following intravenous administration of 10.2 mCi Tc99m tetrofosm in (Myoview). The patient was infused intravenously with Lexiscan (regadenoson). Then, 33 mCi Tc99m t etrofosmin (Myoview) was administered intravenously, and stress images were obtained. Data was recons tructed into short axis and horizontal and vertical long axis SPECT images. Gated SPECT images were a lso obtained. COMPARISON: None. FINDINGS: There is no definite reversible or fixed perfusion abnormality to suggest ischemia or infar ction. There is no segmental wall motion abnormality. Left ventricular ejection fraction measures 7 2%. IMPRESSION: 1. No definite ischemia or infarct. 2. Normal left ventricular ejection fraction measuring 72%. Reviewed, dictated and finalized at location A.
--- NOTE | ~2025-01-23 | XR_ITS ---
Clinical Indication: Chest pain PA and lateral views of the chest: Comparison: 03/03/2024 Findings: The lungs are clear, without evidence of focal consolidation or pleural effusion. Cardiome diastinal silhouette is within normal limits. Bones and soft tissues are unremarkable. Impression: Normal chest. Reviewed, dictated and finalized at location . Impression: Normal chest.
--- NOTE | 2025-01-23 03:22 | ECG_ITS ---
Test Date: 2025-01-23 03:22:24 Measurements Intervals [place] Rate: 72 P: 41 SC: 200 QRS: 30 QRSD: 92 T: 4 QT: 377 QTc: 413 Interpretive Statements SINUS RHYTHM INCOMPLETE RIGHT BUNDLE BRANCH BLOCK CONSIDER INFERIOR INFARCT, AGE INDETERMINATE NONSPECIFIC T-WAVE ABNORMALITY- ANTERIOR LEADS BASELINE ARTIFACT- I, II, III, AVR, AVL, AVF ABNORMAL ECG Compared to ECG 03/03/2024 14:08:37 HEART RATE HAS INCREASED Electronically Signed On 01-23-2025 06:26:47 CDT by Tomas Butts D.O.
[2025-01-23 03:32] LABS: Hematocrit 39.1 % (37.0-47.0); Hemoglobin 12.5 g/dL (12.0-15.0); Immature Granulocyte Percent A 0.1 % (0-0.5); Lymphocytes Absolute Auto 2.91 K/mm3 (0.9-3.2); Mean Corpuscular HGB Conc 32.0 g/dl (32-36); Mean Corpuscular Hemoglobin 29.0 pg (26-34); Mean Corpuscular Volume 90.7 fl (80-100); Nucleated Red Blood Cells Absolute Auto 0.000 K/mm3 (0.0-0.012); Nucleated Red Blood Cells Perc 0.0 % (0.0-0.2); Platelet Count Result 244 k/mm3 (150-375); Red Blood Count 4.31 M/mm3 (4.2-5.4); White Blood Count 7.7 K/mm3 (4.5-10.0)
[2025-01-23 03:52] LABS: Alanine Aminotransferase 16 U/L (6-35); Albumin Level 3.7 g/dL (3.5-5.1); Alkaline Phosphatase 100 U/L (38-126); Anion Gap 6 mmol/L (4-12); Aspartate Amino Transferase 25 U/L (14-36); Bilirubin,Total 0.4 mg/dL (0.2-1.3); Blood Urea Nitrogen 20 mg/dL (7-17); Calcium 8.7 mg/dL (8.4-10.2); Carbon Dioxide 26 mmol/L (22-30); Chloride 107 mmol/L (98-107); Estimated CRCL calculation 50 ml/min; Estimated Glomerular Filt Rate 38; Glucose 109 mg/dL (65-110); INR 1.0; Lipase 73 U/L (23-300); Potassium 3.9 mmol/L (3.4-5.0); Prothrombin Time 13.3 Seconds (11.1-14.7); Sodium 139 mmol/L (137-145); Total Protein 6.7 g/dL (6.3-8.2)
[2025-01-23 03:53] LABS: Partial Thromboplastin Time 29.6 Seconds (22.3-36.8)
[2025-01-23 03:59] LABS: Troponin I < 0.012 ng/mL (0.000-0.034)
--- NOTE | 2025-01-23 04:31 | ED.CHESTPAIN ---
HPI - Chest Pain General Chief Complaint: Chest Pain Stated Complaint: CHEST PRESSURE Time Seen by Provider: 01/23/25 04:04 Source: patient Mode of arrival: EMS Limitations: no limitations History of Present Illness HPI narrative: Patient presents with left chest pressure she noticed when she got up to go to the bathroom at 0200. She felt dizzy and flushed, with near syncope. Pain radiates to left neck/face/jaw, 5/10 in severity upon arrival. No edema. EMS administered 324 ASA and gave 1NTG which she notes improved her symptoms. No SOB, N/V, F/C, cough. She states she felt something like this before when she used to get occasional panic attacks but that was many years ago. History St 4 melanoma 1998. No underlying respiratory/cardiac issues. 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 Not on anticoagulation. Cardiac risk factors HTN: Yes, 20mg lisinopril HLD: Yes DM: No Obese: Yes Smoker: No Personal history TX/TIA/CVA: No Fam Hx TX in first degree relative <65yo: Yes Related Data Home Medications ?Medication ?Instructions ?Recorded ?Confirmed ?Last Taken ?Type alprazolam 0.25 mg tablet 0.25 mg PO Q6H PRN Anxiety 03/03/24 01/23/25 Unknown History escitalopram oxalate 20 mg tablet 10 mg PO DAILY 03/03/24 01/23/25 01/22/25 08:00 History 10 mg estradiol 0.01% (0.1 mg/gram) 1 appful vaginal WEEKLY 03/03/24 01/23/25 01/22/25 20:00 History vaginal cream gabapentin 300 mg capsule 600 mg PO HS 03/03/24 01/23/25 01/22/25 20:00 History 600 mg levothyroxine 150 mcg tablet 125 mcg PO DAILY 03/03/24 01/23/25 01/22/25 07:00 History (Synthroid) 124.995 mcg fexofenadine 180 mg tablet 180 mg PO DAILY 01/23/25 01/23/25 01/22/25 20:00 History (Briana Allergy) 180 mg Allergies Allergy/AdvReac Type Severity Reaction Status Date / Time No Known Allergies Allergy Unknown Verified 01/23/25 09:26 [facility] Past Medical History Medical History HLD (hyperlipidemia) Migraine syndrome Dizziness History of anesthesia problem small airway Metastatic melanoma Stage 4, 1998 Thyroid cancer Arthritis Sciatica Migraine Anxiety Hypertension Surgical History Surgical History History of History of cataract extraction History of bilateral knee arthroplasty History of cholecystectomy H/O thyroidectomy Family History Family History (Updated 01/26/25 @ 11:37 by Venessa Mcrae MD) Father Hypertension Congestive heart failure Acute myocardial infarction <65yo Skin cancer Mother Colorectal cancer Breast cancer Social History Social History (Updated 01/26/25 @ 11:37 by Venessa Mcrae MD) Smoking status: Never smoker Alcohol intake: never Substance use: never Substance use type: does not use Do You Feel Safe in your Home?: Yes Lack of Transportation: No Lack of Food: Never True Current Housing: I Have Housing Concerned About Future Housing: No Difficulty Paying Gas/Electric Bills: No Difficulty Paying for Meds: No Currently Unemployed: No Education: Bachelor's Degree Difficulty w/ Childcare or Family Care: No Living arrangements: with family Additional living arrangements comments: Spiritual care concerns: No Exam Narrative: GENERAL: Well-appearing, well-nourished, and in no acute distress. HEAD: Normocephalic, atraumatic. EYES: Non injected, non icteric ENT: Nares clear, no rhinorrhea or epistaxis. Gross auditory acuity intact. NECK: Supple. No meningismus. CHEST: Speaking in full sentences. No respiratory distress.Lungs clear HEART: Regular rate and rhythm. . ABDOMEN: Soft, nondistended. No rigidity or guarding. Not peritoneal EXTREMITIES: Normal range of motion. No lower extremity edema. SKIN: Warm, dry, no rash. NEURO: No focal deficits. Alert and oriented. Answering questions. Following commands. Normal speech without aphasia or dysarthria. PSYCH: Normal mood and affect. Course Vital Signs Vital signs: Vital Signs Temperature 98.6 F 01/23/25 03:15 Pulse Rate 76 01/23/25 03:15 Respiratory Rate 16 01/23/25 03:15 Blood Pressure 184/90 H 01/23/25 03:15 Pulse Oximetry 100 01/23/25 03:15 Oxygen Delivery Room Air 01/23/25 03:15 Temperature 97.8 F 01/25/25 08:00 Pulse Rate 76 01/25/25 10:00 Respiratory Rate 24 H 01/25/25 08:00 Blood Pressure 152/76 H 01/25/25 08:04 Pulse Oximetry 96 01/25/25 08:00 Oxygen Delivery Room Air 01/25/25 08:00 MDM - Chest Pain MDM Narrative Medical decision making narrative: 69 yo female presents with left chest pressure starting at 0200. Radiates to left neck/face/jaw. EMS administered 324 asa and 1 NTG, pain improved. In the emergency department she is afebrile vital signs notable for hypertension. HEART SCORE History 2 highly suspicious 1 moderately suspicious 0 slightly suspicious History score [address] depression/elevation not due to LBBB, LVH, or digoxin [address] depression but LBBB, LVH, nonspecific repolarization changes 0 normal ECG score 0 Age 2 >/= 65 1 45-64 0 <45 Age score 2 Risk factors (HTN, hypercholesterolemia, DM, obesity with BMI >30, current smoker or cessation </=3mo), positive fam hx with parent or sibling with CVD before age 65, atherosclerotic disease (prior TX, PCI/CABG, CVA/TIA, or peripheral arterial disease) 2 >/= 3 risk factors or history of atherosclerotic dz 1 - 1-2 risk factors 0 no known risk factors Risk factor score 2 Initial Troponin 2 >3 times normal limit 1 1-3 times normal limit 0 less than or equal to normal limit Troponin score 0 Total HEART Score 5. Creatinine consistent with her CKD. BNP only mildly elevated not to a degree to suggest acute heart failure. D-dimer normal. Repeat troponin normal. Patient notes relief of pain each time nitro administered. Given this and HEART score, reasonable to admit for further work up. Differential Diagnosis Differential diagnosis: Likely pneumothorax, stable angina, unstable angina pectoris, atypical chest pain, st elevation myocardial infarction, costochondritis, chest pain, biliary colic and other (PE, PNA; dehydration; ) Medical Records Data Attestation: I reviewed the patient's medical records. Medical records narrative: Echo 03/04/2024 Summary 1. Normal left ventricular size thickness and systolic function. 2. Grade 1 diastolic noncompliance. 3. No valve dysfunction of significance. 4. Agitated saline contrast injection demonstrates no shunt. Lab Data Attestation: I reviewed the patient's lab results. 01/25/25 04:00 01/25/25 04:00 Labs: Lab Results 01/23/25 01/23/25 01/23/25 Range/Units 03:26 05:56 07:10 WBC 7.7 (4.5-10.0) K/mm3 RBC 4.31 (4.2-5.4) M/mm3 Hgb 12.5 (12.0-15.0) g/dL Hct 39.1 (37.0-47.0) % MCV 90.7 (80-100) fl MCH 29.0 (26-34) pg MCHC 32.0 (32-36) g/dl RDW 15.4 H (11.5-14.5) % Plt Count 244 (150-375) k/mm3 MPV 8.6 (7.4-10.4) fl Immature Gran % (Auto) 0.1 (0-0.5) % Neut % (Auto) 48.2 (45.5-73.1) % Lymph % (Auto) 37.6 (18.3-44.2) % [place] % (Auto) 9.8 H (2.6-8.5) % Eos % (Auto) 3.5 (0-4.4) % Baso % (Auto) 0.8 (0.2-1.2) % Lymph # (Auto) 2.91 (0.9-3.2) K/mm3 [place] # (Auto) 0.8 H (0.1-0.6) K/mm3 Eos # (Auto) 0.3 (0-0.3) K/mm3 Baso # (Auto) 0.1 (0.0-0.1) K/mm3 Abs Immat Gran (auto) 0.01 (0.00-0.031) K/mm3 Absolute Neuts (auto) 3.7 (1.3-6.7) K/mm3 Absolute Nucleated RBC 0.000 (0.0-0.012) K/mm3 Nucleated RBC % 0.0 (0.0-0.2) % PT 13.3 (11.1-14.7) Seconds INR 1.0 APTT 29.6 (22.3-36.8) Seconds D-Dimer 0.30 (<0.48) ug/mL Sodium 139 (137-145) mmol/L Potassium 3.9 (3.4-5.0) mmol/L Chloride 107 (98-107) mmol/L Carbon Dioxide 26 (22-30) mmol/L Anion Gap 6 (4-12) mmol/L BUN 20 H (7-17) mg/dL Creatinine 1.36 H (0.7-1.0) mg/dL Estim Creat Clear Calc 50 ml/min Estimated GFR 38 L (59 - ) Glucose 109 (65-110) mg/dL Calcium 8.7 (8.4-10.2) mg/dL Total Bilirubin 0.4 (0.2-1.3) mg/dL AST 25 (14-36) U/L ALT 16 (6-35) U/L Alkaline Phosphatase 100 (38-126) U/L Troponin I < 0.012 < 0.012 (0.000-0.034) ng/mL NT-Pro-B Natriuret Pep 112 H (19.9-100) pg/mL Total Protein 6.7 (6.3-8.2) g/dL Albumin 3.7 (3.5-5.1) g/dL Lipase 73 (23-300) U/L Influenza A (RT-PCR) Negative (Negative) Influenza B (RT-PCR) Negative (Negative) RSV (RT-PCR) Negative (Negative) SARS-CoV-2 RNA (RT-PCR) Negative (Negative) Imaging Data Attestation: I personally reviewed and interpreted this imaging study as follows: My impression: Cardiomegaly with questionable pleural effusion on the left given loss of costophrenic angle although possibly due to body habitus as there does not appear to be distinct layering affect ECG Data EKG #1: Attestation: I personally reviewed and interpreted this ECG as follows: ECG completion date: 01/23/25 ECG completion time: 03:22 Interpretation: Normal sinus rhythm at a rate of 72 beats per minute. KS interval is 200 milliseconds. QRS 92. QT/QTC 377/400. Good R-wave progression across the precordial leads. T-wave inversion isolated to 3 but flatter upright in contiguous inferior leads. No other T-wave inversions. EKG #2: Attestation: I personally reviewed and interpreted this ECG as follows: ECG completion date: 01/23/25 ECG completion time: 06:28 Interpretation: Sinus bradycardia at a rate of 59. KS interval is prolonged at 207 milliseconds consistent with a first-degree AV block. QRS 94. QT/QTC 414/411. Good R-wave progression across the precordial leads. T-wave inversion in 3 upright in contiguous inferior leads. No other T-wave inversions. Discharge Plan Discharge Clinical Impression: Chest pressure, CKD (chronic kidney disease) Patient Disposition: Still a Patient Condition: Stable
--- OUTSIDE RECORDS SUMMARY | 2025-01-23 04:46 | XMS_ITS | Patient Health Record ---
Author Organization [facility] Address [address] [place], [place] [id number] Care Team Providers Care Travel Sales Consultant Name Role Phone RIANNA BRODERICK Unavailable [phone] Nguyễn Haji Unavailable Unavailable Reason For Referral No Information Medications Medication SIG (Take, Route, Frequency, Duration) Notes Start Date End Date Status ciclopirox 80 MG/ML Topical Solution ciclopirox 80 MG/ML Topical SolutionOriginal Medicationciclopirox 80 MG/ML Topical Solution *Reorder from [place] for eRx and Interaction Alerts* 5 Active betamethasone 0.5 MG/ML / clotrimazole 10 MG/ML Topical Cream [Lotrisone] CUTANEOUS betamethasone 0.5 MG/ML / clotrimazole 10 MG/ML Topical Cream [Lotrisone]Original Medicationbetamethasone 0.5 MG/ML / clotrimazole 10 MG/ML Topical Cream [Lotrisone] *Reorder from [place] for eRx and Interacti 5 Active urea 400 MG/ML Topical Cream CUTANEOUS urea 400 MG/ML Topical CreamOriginal Medicationurea 400 MG/ML Topical Cream *Reorder from [place] for eRx and Interaction Alerts* 5 Active Plan Of Treatment No Information Insurance Providers Payer Name Payer Address Payer Phone Subscriber Number Group Number Insured Name Patient Relationship to Insured Coverage Start Date Coverage End Date [facility] [address] [place] [id number] BRIGHT GUSMAN Self - patient is the insured
--- OUTSIDE RECORDS SUMMARY | 2025-01-23 04:46 | XMS_ITS | Continuity of Care Document ---
Author Organization [facility] Address [address] [place] [address] Phone Care Team Providers Care Marine Service Manager Name Role Phone Tiny PT, DPT, Oneyda Unavailable Unavaila ble Procedures Procedure Date Therapeutic Activities Neuromuscular Re-Ed Therapeutic Exercise Therapeutic Activities Neuromuscular Re-Ed Therapeutic Exercise Therapeutic Activities Neuromuscular Re-Ed Therapeutic Activities Neuromuscular Re-Ed Doc neg elder mal no plan PRES/ABSN URINE INCON ASSESS PT Evaluation Low Complexity Therapeutic Activities Therapeutic Exercise Manual Therapy Advance Directives Directive Yes / No Effective Date File Name No Information Encounters Encounter Description Practice Location Reason(s) For Visit Diagnoses Date Provider Providers [facility] on [facility], [place], [place], [id number], tel:[phone] Winfred No Information Tiny Call. . [facility], [place], [place], [address], tel:[phone] Winfred No Information Tiny Call. . [facility], [place], [place], [address], tel:[phone] Winfred No Information [facility] . . [facility], [place], [place], [address], [place] tel:[phone] Lindsey No Information [facility] . [facility], [place], [place], [address], [place] tel:[phone] Lindsey Urge incontinence Franks . . Family History Family Member Type Diagnosis Age At Onset No Information Payers Payer name Insurance type Covered green party ID Ronan mckeon(s) [employer] CI [id number] Social History Type Description Quantity Date Captured Comments Sex Female Smoking Status No Information Chief Complaint And Reason For Visit No Information Reason For Referral Reason For Referral No Information Plan Of Treatment Date Type Action Status Referral Ordered: PCP timeframe: 1 week. (related to Overweight) ordered Referral Ordered: Weight management: Referral to physician timeframe: 1 Month. (related to Overweight) ordered Referral Ordered: PCP timeframe: 1 week. (related to Overweight) ordered Referral Ordered: Weight management: Referral to physician timeframe: 1 Month. (related to Overweight) ordered History Of Present Illness Encounter Date Complaint History Of Prese nt Illness No Information Functional Status Date Functional Assessmen t No Information Instructions Date Instruction Additional Infor mation Kegel exercises were explained to the patient. Related to Urge incontinence Kegel exercises were explained to the patient. Related to Urge incontinence Assessments Type Assessment Date No Information Patient Care Teams Name Effective Dates (start - stop) Status Members No Information
--- OUTSIDE RECORDS SUMMARY | 2025-01-23 04:46 | XMS_ITS | Clinical Summary ---
Author Organization [facility] Address [address] [place] [address] Phone Care Team Providers Care Pull Worker Name Role Phone Nguyễn Haji DO Primary Care Provider [phone] Allergies Active Allergy Reactions Criticality Noted Date Comments Adhesive Tape-Silicones Unknown 02/25/2014 Medications SYNTHROID 175 mcg tablet 150 mcg. 7 Active cholecalciferol , vitamin D3, 4,000 unit Capsule Active escitalopram oxalate (LEXAPRO) 20 mg tablet 8 Active ALPRAZolam (XANAX) 1 mg tablet TK 1 T PO 1 AND 1/2 HOURS BEFORE TEST. MAY REPEAT IF NEEDED. 0 Active gabapentin (NEURONTIN) 300 mg capsule 300 mg 2 times daily. 2 Active methocarbamoL (ROBAXIN) 500 mg tablet take 1 tablet by oral route 3 times every day as needed for spasms 2 Active lisinopriL (PRINIVIL) 20 mg tablet 2 Active escitalopram oxalate (LEXAPRO) 5 mg tablet 10 mg. 5 Active Synthroid 150 mcg tablet 4 Active nitrofurantoin (MACROBID) 100 mg capsule Take 1 Capsule (100 mg) by mouth 2 times daily. 14 Capsule 5 Active Additional Information Patient not taking.Reported on 08/08/2024 estradioL (ESTRACE) 0.01% (0.1 mg/g) vaginal cream INSERT 1 GRAM VAGINALLY EVERY NIGHT FOR 7 DAYS THEN USE 1 GRAM VAGINALLY WEEKLY THEREAFTER 42.5 Gram Active Active Problems Problem Noted Date Diagnosed Date Increased risk of breast cancer 04/07/2023 Vitamin D deficiency, unspecified 08/11/2021 Degeneration of cervical intervertebral disc Anxiety 06/15/2021 Chronic migraine without aur a without status migrainosus, not intractable 06/15/2021 Macular pucker, left eye 06/15/2021 Obesity, morbid, BMI 40.0-49.9 06/15/2021 Primary osteoarthritis involving multiple joints 06/15/2021 Pseudophakia of both eyes 06/15/2021 Essential hypertension 02/25/2020 Demyelinating disease of central nervous system 02/22/2019 Mass of spine 02/22/2019 Malignant melanoma of right upper extremity including shoulder 02/22/2019 Malignant melanoma of right upper extremity 04/19 Papillary thyroid carcinoma 04/30/2018 Polyp of cervix 12/25/2017 Urinary incontinence in female 12/30/2016 Urinary incontinence, urge 12/30/2016 Frequency of urination 12/30/2016 Morbid obesity due to excess calories 12/30/2016 Malignant neoplasm of thyroid gland 07/21/2016 Overview (08/08/2024): Malignant neoplasm of thyroid gland Postoperative hypothyroidism 07/21/2016 Overview (08/08/2024): Postoperative hypothyroidism Vaginitis and vulvovaginitis 12/03/2013 Encounters Date Type Department Care Team Description 01/22/2025 External Device Data [facility] ABSTRACTION Provider, Abstract 01/01/2025 External Device Data [facility] ABSTRACTION Provider, Abstract 01/01/2025 External Device Data [facility] ABSTRACTION Provider, Abstract 12/17/2024 [facility] PAPERBOARD BOXES ESTIMATOR - [facility] [address] [facility] [address] [place] [address] Jony Crockett MD 12/10/2024 External Device Data [facility] ABSTRACTION Provider, Abstract 11/06/2024 External Device Data [facility] ABSTRACTION Provider, Abstract 11/05/2024 External Device Data [facility] ABSTRACTION Provider, Abstract from Last 3 Months Immunizations Immunization Administration Dates Next Due (ADACEL/BOOSTRIX)(10 YR UP) TDAP VACCINE, 0.5ML, IM 11/11/2014 (PNEUMOVAX 23)(50 YRS UP) PN EUMOCOCCAL POLYSACCHARIDE (PPV23) 0.5 ML, IM 04/02/2021 (PREVNAR 13)(6 WKS UP) PNEUM OCOCCAL CONJUGATE (PCV13) 0.5 ML, IM 03/17/2020 (SHINGRIX)(50 YRS UP) ZOSTER VACCINE RECOMBINANT, 0.5 ML, IM 04/19/2021,02/11/2021 INFLUENZA VACCINE HIGH DOSE QUADRIVALENT 65 YR UP PF IM 03/17/2020 INFLUENZA VACCINE QUADRIVALE NT 3 YR UP PF IM 04/16/2019 INFLUENZA VACCINE QUADRIVALE NT 6 MOS UP PF IM 03/26/2018 Influenza Seasonal Unspecifi ed Formulation IM 03/19/2024,03/08/2023,06/15/2020 Influenza, Unspecified Formulation 04/02/2021, Family History Medical History Relation Name Comments Healthy Brother 1 Shruti Healthy Brother 2 Loc No Known Problems Daughter 1 No Known Problems Daughter 2 Cancer Father Loc Hypertension Father Loc Melanoma Father Loc Breast Cancer Mother Syeda age 50's to 60 's Cancer Mother Syeda Colon Cancer Mother Syeda Healthy Sister 1 Hector Healthy Sister 2 Chelsey Ovarian Cancer Neg Hx Relation Name Status Comments Brother 1 Shruti Brother 2 Loc Alive Daughter 1 Alive Daughter 2 Alive Father Loc Mother Syeda Sister 1 Hector Alive Sister 2 Chelsey Alive Social History Tobacco Use Types Packs/Day Years Used Date Smoking Tobacco: Never Passive Smoke Exposure: Never Smokeless Tobacco: Never Tobacco Cessation:Counseling Given: Not Answered Alcohol Use Standard Drinks/Week Comments No 0 (1 standard drink = 0.6 oz pur e alcohol) Comments No Sex and Gender Information Value Date Recorded Sex Assigned at Female 04/21/2024 9:24 AM ASSOCIATE SALES REPRESENTATIVE Legal Sex Female 5:21 AM ASSOCIATE SALES REPRESENTATIVE Gender Identity Female 04/21/2024 9:24 AM ASSOCIATE SALES REPRESENTATIVE Sexual Orientation Not on file Occupation Industry Job Start Date Job End Date Not on file Not on file Not on file Not on file Last Filed Vital Signs Vital Sign Reading Time Taken Comments Blood Pressure 124/80 08/08/2024 9:38 AM ASSOCIATE SALES REPRESENTATIVE Pulse 56 04/17/2023 1:53 PM CDT Temperature 36.3 C (97.3 F) 04/17/2023 1:38 PM CDT Respiratory Rate 16 04/17/2023 1:53 PM CDT Oxygen Saturation 98% 04/17/2023 1:53 PM CDT Inhaled Oxygen Concentration - - Weight 134.7 kg (297 lb) 08/08/2024 9:38 AM ASSOCIATE SALES REPRESENTATIVE Height 165.1 cm (5' 5) 08/08/2024 9:38 AM ASSOCIATE SALES REPRESENTATIVE Body Mass Index 49.42 08/08/2024 9:38 AM ASSOCIATE SALES REPRESENTATIVE Plan of Treatment Upcoming Encounters Date Type Department Care Team (Late st Contact Info) Description 04/25/2025 11:00 AM ASSOCIATE SALES REPRESENTATIVE [facility] [address] [facility] [address] [place] [address] Jony Crockett MD [address] [facility] [address] [place] [address] Health Maintenance Due Date Last Done Comments Pre-Diabetes and Diabetes Screening 1955 FIT-DNA Q 3 years 09/04/1999 Flex Sig/CT Colonography Q 5 years 09/04/1999 RSV VACCINE (60+ or ) (1 - Risk 60-74 years 1-dose series) 2014 FIT/FOBT Q 1 year 03/02/2022 03/02/2021, 02/27/2020 DTAP/TDAP/TD VACCINES (2 - T d or Tdap) 11/11/2024 11/11/2014 INFLUENZA VACCINE (#1) 2025 4, 03/08/2023, 06/15/2020, Additional history exists BREAST CANCER SCREENING 10/16/2025 10/17/19 25, 04/25/2024, 04/13/2023, Additional history exists OSTEOPOROSIS SCREENING 08/08/2029 5, 03/08/2022, 03/03/2020 COLORECTAL SCREENING 04/17/2030 04/17/2023, 04/17/2023, 02/13/2018 Colorectal Cancer Screening 04/17/2030 PNEUMOCOCCAL VACCINE 50+ YEARS Completed 04/02/2021 , 03/17/2020 ZOSTER VACCINE Completed 04/19/2021, 02/11/2021 Procedures Procedure Name Priority Date/Time Associated Diagnosis Comments MAMMO DIAG UNI LEFT 3D ERIC W OR WO CAD Routine 10/16/2024 3:58 PM CDT Increased risk of breast cancer XR DEXA BONE DENSITY AXIAL 1 OR MORE SITES Routine 08/08/2024 10:39 AM ASSOCIATE SALES REPRESENTATIVE Other specified menopausal and perimenopausal disorders History of thyroid cancer History of thyroidectomy COLONOSCOPY REPORT 04/17/2023 1: 37 PM CDT POC OCCULT BLOOD, IMMUNO, QUAL, STOOL Routine 03/02/2021 1:20 PM CDT Screening for malignant neoplasm of the rectum from Last 3 Months or Most Recently Relevant to Health Maintenance Results * MAMMO 3D ERIC DIAGNOSTIC UNI LT W OR WO CAD (10/16/2024 3:58 PM CDT) Anatomical Region Laterality Modality Breast Left Mammography 10/16/2024 4:00 PM CDT Impressions 10/16/2024 4:05 PM CDT IMPRESSION: Small cysts bilaterally. Patient is scheduled for a follow-up mammogram in April. This should be a diagnostic exam. OVERALL FINAL ASSESSMENT: BI-RADS CATEGORY 2 - Benign findings. Dictation Location [facility] Narrative 10/16/2024 4:05 PM CDT BILATERAL COMPLETE BREAST SONOGRAM AND DIAGNOSTIC MAMMOGRAM LEFT BREAST 10/16/2024 HISTORY: Family history of breast cancer, personal history of melanoma, interval screening sonogram. COMPARISON: Patient originally presented for a complete bilateral breast sonogram. Comparison is made with mammograms dated 04/25/2024. Sonography of the right breast demonstrates a benign-appearing cyst at 3:00 measuring 8 x 3 mm. There is no adenopathy in the right axilla. Sonography of the left breast demonstrates a small hypoechoic lesion at 12:00 measuring 3 mm. There is no adenopathy. A BB was placed over this lesion in the DIAGNOSTIC mammogram was obtained. The breast parenchyma is largely fat density. No underlying mass is identified. us Jony Crokcett MD MAMMO ORDERABLES Final Resul t * XR DEXA BONE DENSITY AXIAL 1 OR MORE SITES (08/08/2024 10:39 AM ASSOCIATE SALES REPRESENTATIVE) Anatomical Region Laterality Modality Digital Radiogra phy 08/08/2024 10:3 9 AM ASSOCIATE SALES REPRESENTATIVE Impressions 08/08/2024 10:44 AM ASSOCIATE SALES REPRESENTATIVE IMPRESSION: Normal bone mineral densities. Lumbar Spine: T-score: 6.1 Left Femoral Neck: T-score: 0.1 Left Total Femur: T-score: 1.0 Right Femoral Neck: T-score: 1.4 Right Total Femur: T-score: 1.1 Left 33% Radius: T-Score: 2.4 FRAX FRACTURE RISK ASSESSMENT: (Only valid Between 40-89 Years Of Age) Risk factors: History of fracture as an adult. Secondary osteoporosis. 10-Year probability of fracture Major osteoporotic fracture: 9.1 % Defined as fracture of the spine, hip or shoulder. Hip fracture: 0.4 % Comparison population: [place], Race: White This is a summary page. Please refer to the complete detailed report found in: Imaging Section of the [facility] EMR. Definitions: Normal: T-score above -1.0 Osteopenia T-score less than -1.0 and above -2.5 Osteoporosis: T-score <= -2.5 Note: Clinical Osteoporosis may be based on other factors besides DXA calculated BMD. OTher factors include and are not limited to fragility fractures, subclinical compression fractures,osteopenia and elevated FRAX Scores. A major osteoporotic fracture is defined as a fracture of the spine, forearm, hip or shoulder. Follow-up Recommendations: Patients without high risk factors for osteoporosis T-score -1.0 to -1.5 - Consider repeat BMD in 5-10 years T-score -1.5 to - 2.0 - Consider repeat BMD in 3-5 years T-score -2.0 to - 2.5 - Consider repeat BMD every 2 years Patients on treatment for osteoporosis 1-2 years after initiation of treatment and every 2 years thereafter [address] Dr[address] Blake Schmitt MD DICTATION LOCATION: 1 Narrative 08/08/2024 10:44 AM ASSOCIATE SALES REPRESENTATIVE EXAMINATION: BONE DENSITY STUDY (DXA) DATE: 08/08/2024 10:39 AM HISTORY: 68 years Female. Postmenopausal. Screening for osteoporosis. PROCEDURE: Planar images of the lumbar spine, hip(s) and forearm(s). [employer] DEXA scanner for bone mineral density determination (BMD). FINDINGS: Lumbar Spine (L1-L4): T-score: 6.1 1.918 g/sq cm Left Femoral Neck: T-score: 0.1 1.053 g/sq cm Left Total Femur: T-score: 1.0 Right Femoral Neck: T-score: 1.4 1.231 g/sq cm Right Total Femur: T-score: 1.1 Left 33% Radius: T-Score: 2.4 1.082 g/sq cm TECHNICAL ISSUES: Lumbar spine measurements are increased due to degenerative changes. Procedure Note Blake Schmitt MD - 08/08/2024 EXAMINATION: BONE DENSITY STUDY (DXA) DATE: 08/08/2024 10:39 AM HISTORY: 68 years Female. Postmenopausal. Screening for osteoporosis. PROCEDURE: Planar images of the lumbar spine, hip(s) and forearm(s). [employer] DEXA scanner for bone mineral density determination (BMD). FINDINGS: Lumbar Spine (L1-L4): T-score: 6.1 1.918 g/sq cm Left Femoral Neck: T-score: 0.1 1.053 g/sq cm Left Total Femur: T-score: 1.0 Right Femoral Neck: T-score: 1.4 1.231 g/sq cm Right Total Femur: T-score: 1.1 Left 33% Radius: T-Score: 2.4 1.082 g/sq cm TECHNICAL ISSUES: Lumbar spine measurements are increased due to degenerative changes. IMPRESSION: Normal bone mineral densities. Lumbar Spine: T-score: 6.1 Left Femoral Neck: T-score: 0.1 Left Total Femur: T-score: 1.0 Right Femoral Neck: T-score: 1.4 Right Total Femur: T-score: 1.1 Left 33% Radius: T-Score: 2.4 FRAX FRACTURE RISK ASSESSMENT: (Only valid Between 40-89 Years Of Age) Risk factors: History of fracture as an adult. Secondary osteoporosis. 10-Year probability of fracture Major osteoporotic fracture: 9.1 % Defined as fracture of the spine, hip or shoulder. Hip fracture: 0.4 % Comparison population: [place], Race: White This is a summary page. Please refer to the complete detailed report found in: Imaging Section of the [facility] EMR. Definitions: Normal: T-score above -1.0 Osteopenia T-score less than -1.0 and above -2.5 Osteoporosis: T-score <= -2.5 Note: Clinical Osteoporosis may be based on other factors besides DXA calculated BMD. OTher factors include and are not limited to fragility fractures, subclinical compression fractures,osteopenia and elevated FRAX Scores. A major osteoporotic fracture is defined as a fracture of the spine, forearm, hip or shoulder. Follow-up Recommendations: Patients without high risk factors for osteoporosis T-score -1.0 to -1.5 - Consider repeat BMD in 5-10 years T-score -1.5 to - 2.0 - Consider repeat BMD in 3-5 years T-score -2.0 to - 2.5 - Consider repeat BMD every 2 years Patients on treatment for osteoporosis 1-2 years after initiation of treatment and every 2 years [address] Blake Schmitt MD DICTATION LOCATION: 1 us Jony Crockett MD DIAGNOSTIC IMAGING ORDERABLE S Final Result * COLONOSCOPY REPORT (04/17/2023 1:37 PM CDT) Narrative Procedure Note Vasiliy Aguilar MD - 04/17/2023 1:37 PM CDT [facility] Endoscopy Patient Name: Diana Ramsay Procedure Date: 04/17/2023 Date of : 1955 Attending MD: Vasiliy Aguilar MD, Procedure: Colonoscopy Indications: Screening in patient at increased risk: Colorectal cancer in mother 60 or older Patient Profile: This is a 67 year old female. Providers: Vasiliy Aguilar MD Referring MD: Eric Ruth Medicines: Monitored Anesthesia Care Complications: No immediate complications. Procedure: Pre-Anesthesia Assessment: - Prior to the procedure, a History and Physical was performed, and patient medications and allergies were reviewed. The patient's tolerance of previous anesthesia was also reviewed. The risks and benefits of the procedure and the sedation options and risks were discussed with the patient. All questions were answered, and informed consent was obtained. Prior Anticoagulants: The patient has taken no anticoagulant or antiplatelet agents. ASA Grade Assessment: III - A patient with severe systemic disease. After reviewing the risks and benefits, the patient was deemed in satisfactory condition to undergo the procedure. Informed consent was obtained for the procedure, including moderate sedation after risks were discussed. Based on the pre-procedure assessment, including review of the patient's medical history, medications, allergies, and review of systems, the patient was deemed to be an appropriate candidate for sedation. A timeout was performed. Continuous ECG monitoring, pulse oximetry, blood pressure monitoring, and direct observation were performed. The Colonoscope was introduced through the anus and advanced to the terminal ileum. The colonoscopy was performed without difficulty. The patient tolerated the procedure well. The quality of the bowel preparation was evaluated using the BBPS (Dolliver Bowel Preparation Scale) with scores of: Right Colon = 3, Transverse Colon = 3 and Left Colon = 3 (entire mucosa seen well with no residual staining, small fragments of stool or opaque liquid). The total BBPS score equals 9. The terminal ileum, ileocecal valve, appendiceal orifice, and rectum were photographed. Estimated Blood Loss: Estimated blood loss was minimal. Findings: The perianal and digital rectal examinations were normal. The terminal ileum appeared normal. A 4 mm polyp was found in the ascending colon. The polyp was sessile. The polyp was removed with a cold snare. Resection and retrieval were complete. Multiple medium-mouthed and small-mouthed diverticula were found in the left colon. The exam was otherwise without abnormality on direct and retroflexion views. Impression: 1) Excellent bowel prep 2) One 4mm sessile polyp removed by cold snare from ascending colon 3) Diverticulosis in the left colon. 4) The examination was otherwise normal including visualized portions of terminal ileum and retroflexion in rectum Recommendation: - Patient has a contact number available for emergencies. The signs and symptoms of potential delayed complications were discussed with the patient. Return to normal activities tomorrow. Written discharge instructions were provided to the patient. - Resume previous diet. - Continue present medications. - Await pathology results. - Repeat colonoscopy in 5-7 years for surveillance. - Discharge patient to home. - Return to primary care physician as previously scheduled. Attending Participation: I personally performed the entire procedure. Vasiliy Aguilar MD 04/17/2023 1:37:39 PM This report has been signed electronically. Number of Addenda: [address]; [place] [address] Vasiliy Aguilar MD GI PROCEDURE ORDERABLES Final Result * POC OCCULT BLOOD, IMMUNO, QUAL, STOOL (03/02/2021 1:20 PM CDT) OCCULT BLOOD, IMMUNOASSAY POC Negative Negative [facility] PAPERBOARD BOXES ESTIMATOR [address] INTERNAL KIT QC Pass Pass [facility] PAPERBOARD BOXES ESTIMATOR [address] KIT LOT NUMBER POC [id number] [facility] PAPERBOARD BOXES ESTIMATOR [address] KIT EXPIRATION DATE POC 12/16/22 [facility] PAPERBOARD BOXES ESTIMATOR [address] Stool STOOL SPECIMEN / Unknown 03/02/2021 1:20 PM CDT Jony Crockett MD POINT OF CARE TESTING Final Result [facility] PAPERBOARD BOXES ESTIMATOR [address] CLIA# [id number] [address] [place] [address] from Last 3 Months or Most Recently Relevant to Health Maintenance Insurance [facility] [id number] Advance Directives For more information, please contact: [phone] * Full Code (Latest Code Status on File) Date Activated Date Inactivated Comments 04/17/2023 12:30 PM 04/17/2023 4:34 PM Care Teams Pull Worker Relationship Specialty Start Date End Date Nguyễn Haji DO [address] [place] [address] PCP - General 02/18/09
--- OUTSIDE RECORDS SUMMARY | 2025-01-23 04:46 | XMS_ITS | Continuity of Care Document ---
Author Organization [facility] Address [address] [facility] [address] [address] Phone Care Team Providers Care Senior Budget Analyst Name Role Phone Loc Elizabeth MD Unavailable Unavailable Procedures Procedure Date Office/outpatient visit,[facility] 2005 Office/outpatient visit,[facility] 2005 Stack Splint, Finger Advance Directives Directive Yes / No Effective Date File Name No Information Encounters Encounter Description Practice Location Reason(s) For Visit Diagnoses Date Provider Providers Copied on Encounter Office/outpat ient visit,[facility] [place], [address], [address] [place] [address], [phone] [facility] No Information [address] [facility], [address], [id number] , [place]. tel: [phone] Office/outpat ient visit,[facility] [place], [address] [place] [address], [id number], tel:[phone] [facility] No Information [address] [place] [address], [id number] , [place]. tel: [phone] Family History Family Member Type Diagnosis Age At Onset No Information Payers Payer name Insurance type Covered constitution party ID Authorlissaa linda(s) [facility] [id number] Social History Type Description Quantity Date Captured Comments Sex Female Smoking Status No Information Chief Complaint And Reason For Visit No Information Reason For Referral Reason For Referral No Information History Of Present Illness Encounter Date Complaint History Of Prese nt Illness No Information Functional Status Date Functional Assessmen t No Information Instructions Date Instruction Additional Infor mation No Information Assessments Type Assessment Date No Information Patient Care Teams Name Effective Dates (start - stop) Status Members No Information
--- OUTSIDE RECORDS SUMMARY | 2025-01-23 04:46 | XMS_ITS | Encounter Summary ---
Author Organization [facility] Address [address] [place] [address] Care Team Providers Care Patternmaker Plastics Name Role Phone Nguyễn Haji DO Primary Care Provider [phone] Encounter Details Date Type Department Care Team (Late st Contact Info) Description 01/22/2025 External Device Data [facility] Provider, Abstract NO ADDRESS ON FILE Social History Tobacco Use Types Packs/Day Years Used Date Smoking Tobacco: Never Passive Smoke Exposure: Never Smokeless Tobacco: Never Alcohol Use Standard Drinks/Week Comments No 0 (1 standard drink = 0.6 oz pur e alcohol) Comments No Sex and Gender Information Value Date Recorded Sex Assigned at Female 04/21/2024 9:24 AM TRAFFIC LINE PAINTER Legal Sex Female 5:21 AM TRAFFIC LINE PAINTER Gender Identity Female 04/21/2024 9:24 AM TRAFFIC LINE PAINTER Sexual Orientation Not on file Occupation Industry Job Start Date Job End Date Not on file Not on file Not on file Not on file documented as of this encounter Plan of Treatment Upcoming Encounters Date Type Department Care Team (Late st Contact Info) Description 04/25/2025 11:00 AM TRAFFIC LINE PAINTER [facility] [address] [facility] [address] [place] [address] Jony Crockett MD [address] [facility] [address] [address] documented as of this encounter Visit Diagnoses Not on filedocumented in this encounter Additional Health Concerns Assessment Noted Time PHQ-9 Depression Total Score: 2 07/26/19 25 12:34 PM TRAFFIC LINE PAINTER documented as of this encounter Care Teams Patternmaker Plastics Relationship Specialty Start Date End Date Nguyễn Haji DO [address] [place] [address] PCP - General 02/18/09 documented as of this encounter
--- OUTSIDE RECORDS SUMMARY | 2025-01-23 04:46 | XMS_ITS | Encounter Summary ---
Author Organization [facility] Address [address] [place] [address] Care Team Providers Care Reconciliation Analyst Name Role Phone Nguyễn Haji DO Primary Care Provider [phone] Cem Walton MD Unavailable Reason for Visit * Reason Onset Date Comments MEDICATION REFILL 12/25/2021 Encounter Details Date Type Department Care Team (Late st Contact Info) Description 12/25/2021 Refill [facility] Neurosciences [address] [place] [address] Cem Walton MD [address] [place] [address] MEDICATION REFILL Social History Tobacco Use Types Packs/Day Years Used Date Smoking Tobacco: Never Assessed Comments Unknown Sex and Gender Information Value Date Recorded Sex Assigned at Female 10/20/2020 2:14 PM CDT Legal Sex Female 6:01 AM HOME HEALTH CARE COORDINATOR Gender Identity Female 10/20/2020 2:14 PM CDT Sexual Orientation Straight 07/03/2021 2: 10 PM HOME HEALTH CARE COORDINATOR documented as of this encounter Plan of Treatment Not on file documented as of this encounter Visit Diagnoses Not on filedocumented in this encounter Care Teams Reconciliation Analyst Relationship Specialty Start Date End Date Nguyễn Haji DO [facility] [address] [place], [place] [id number] PCP - General 11/03/08 Cem Walton MD [address] [address] Neurologist Neurology 10/08/20 documented as of this encounter
--- OUTSIDE RECORDS SUMMARY | 2025-01-23 04:47 | XMS_ITS | Encounter Summary ---
Author Organization [facility] Address [address] [place] [address] Care Team Providers Care Renovation Plant Supervisor Name Role Phone Nguyễn Haji DO Primary Care Provider [phone] Encounter Details Date Type Department Care Team (Late st Contact Info) Description 03/06/2003 Outpatient Historical HIS [facility] IFRAH BARCLAY Social History Tobacco Use Types Packs/Day Years Used Date Smoking Tobacco: Never Assessed Comments Unknown Sex and Gender Information Value Date Recorded Sex Assigned at Female 04/21/2024 9:24 AM LEADERSHIP INTERN Legal Sex Female 5:21 AM LEADERSHIP INTERN Gender Identity Female 04/21/2024 9:24 AM LEADERSHIP INTERN Sexual Orientation Not on file documented as of this encounter Plan of Treatment Upcoming Encounters Date Type Department Care Team (Late st Contact Info) Description 04/25/2025 11:00 AM LEADERSHIP INTERN Appointment [facility] [place] [address] [facility] [address] [place] [address] Jony Crockett MD [address] [address] documented as of this encounter Visit Diagnoses Not on filedocumented in this encounter Care Teams Renovation Plant Supervisor Relationship Specialty Start Date End Date Nguyễn Haji DO [address] [place] [address] PCP - General 02/18/09 documented as of this encounter
--- OUTSIDE RECORDS SUMMARY | 2025-01-23 04:47 | XMS_ITS | Clinical Summary ---
Author Organization [facility] Address [address] [place] [address] Care Team Providers Care Sprinkler Worker Name Role Phone Nguyễn Haji Luz Marina TAYLOR Primary Care Provider [phone] Cem Walton MD Unavailable Source Comments [facility],non-owned Affiliates and Associated Physician Practices is amultiple site organization consisting of ambulatory clinics and hospital sitesin [place], [place], [place] and [place]. This disclosure is being madepursuant to the Care Everywhere program and may not contain all information available regarding this patient. Last updated 18.[facility] Allergies No known active allergies Medications * Be aware that medications may not be up to date on this document. Alwaysverify current medications with the patient. butalbital-acet aminophen-caffe ine (FIORICET) 50-325-40 MG tablet Take 1 (one) tablet by mouth every 4 hours as needed for Headache 20 tablet 2 07/07/2021 Active lisinopril (Prinivil; Zestril) 20 MG tablet 05/31/2022 Active escitalopram (Lexapro) 10 MG tablet Take 1 (one) tablet by mouth once daily 10/20/2020 Active ALPRAZolam (Xanax) 0.25 MG tablet Take by mouth every 8 hours 10/20/2020 Active gabapentin (Neurontin) 300 MG capsule Take 1 (one) capsule by mouth once daily 08/11/2022 Active levothyroxine (Synthroid) 175 MCG tablet 1 (one) tablet every morning 04/12/2021 Active Galcanezumab-gn lm (Emgality) 120 MG/ML auto-injector pen INJECT 120 MG UNDER THE SKIN EVERY 30 DAYS (3 cc for 90 days) 3 mL 1 08/25/2022 Active Active Problems No known active problems Social History Tobacco Use Types Packs/Day Years Used Date Smoking Tobacco: Never Assessed Comments Unknown Sex and Gender Information Value Date Recorded Sex Assigned at Female 10/20/2020 2:14 PM CDT Legal Sex Female 6:01 AM LEAD CUSTODIAN Gender Identity Female 10/20/2020 2:14 PM CDT Sexual Orientation Straight 07/03/2021 2: 10 PM LEAD CUSTODIAN Last Filed Vital Signs Vital Sign Reading Time Taken Comments Blood Pressure 152/79 08/25/2022 9:28 AM LEAD CUSTODIAN Pulse 60 08/25/2022 9:28 AM LEAD CUSTODIAN Temperature - - Respiratory Rate - - Oxygen Saturation - - Inhaled Oxygen Concentration - - Weight - - Height - - Body Mass Index - - Plan of Treatment Health Maintenance Due Date Last Done Comments BONE DENSITY TESTING 1955 COLOGUARD (AGES 45-75) - COLON CA SCREENING 1954 COLON MONITORING 1954 COLONOSCOPY - COLON CA SCREENING 1954 CT COLONOGRAPHY - COLON CA SCREENING 1955 Colorectal Cancer Screening 1954 FIT - COLON CA SCREENING 1954 FLEX SIG - COLON CA SCREENING 1954 LIPID TESTING 1955 MAMMOGRAM 1954 HEPATITIS C SCREENING 08/29/1972 DTAP/TDAP/TD VACCINES (1 - Tdap) 1973 PNEUMOCOCCAL VACCINE 50+ (1 of 1 - PCV) 2004 ZOSTER VACCINE (1 of 2) 2004 COVID-19 VACCINE (1 - 2023- season) 2024 DEPRESSION SCREENING 06/19/2024 MEDICARE AWV CALENDAR YEAR 2024 INFLUENZA VACCINE (#1) 2025 , 04/02/2021, 04/16/2019, Additional history exists Respiratory Syncytial Virus (RSV) Vaccine Pt: or over 60 yrs (1 - 1-dose 75+ series) 2029 HEPATITIS B VACCINE Aged Out No longe r eligible based on patient's age to complete this topic HIB VACCINE Aged Out No longer eligi ble based on patient's age to complete this topic HPV VACCINE Aged Out No longer eligi ble based on patient's age to complete this topic MENINGOCOCCAL (Group B) VACCINE SHARED DECISION-MAKING Aged Out No longer eligible based on patient's age to complete this topic MENINGOCOCCAL GROUPS A/C/Y/W VACCINE Aged Out No longer eligible based on patient's age to complete this topic Insurance [facility] MANAGED MEDICARE ADV Care Teams Sprinkler Worker Relationship Specialty Start Date End Date Nguyễn Haji DO [address] [place] [id number] PCP - General 11/03/08 Cem Walton MD [address] [facility] [address] [place] [address] Neurologist Neurology 10/08/20
--- OUTSIDE RECORDS SUMMARY | 2025-01-23 04:47 | XMS_ITS ---
Author Organization [facility] Address [address] [place], [place] [address] Care Team Providers Care Battery Starter Name Role Phone Nguyễn Haji Primary Care Provider Terell Dowd Unavailable [phone] Migration, Provider Unavailable Unavailable REASON FOR VISIT Multum To Medispan Conversion Encounter Medications Medication SIG (Take, Route, Frequency, Duration) Notes Start Date End Date Status Magnesium *Please review a nd pick correct strength-formulatio n from Medispan options. If intended option is not shown, discontinue and re-order from Quick Search* Active Calcium-Vitamin D *Please review and pick correct strength-formulatio n from Medispan options. If intended option is not shown, discontinue and re-order from Quick Search* Active Levothyroxine Sodium *Please rev iew and pick correct strength-formulatio n from Medispan options. If intended option is not shown, discontinue and re-order from Quick Search* Active Multivitamin *Please review a nd pick correct strength-formulatio n from Medispan options. If intended option is not shown, discontinue and re-order from Quick Search* Active Encounters Encounter Location Date Provider Diagnosis [facility] [address] [place], [place] [address] 06/01/2024 Provider Migration Plan Of Treatment No Information Progress Notes * Jim GUSMANOB: 5 (69 yo F)Acc No.[id number]:06/01/2024 Patient: Diana Nelson AMS Provider: Cynthia Zambrano :1955 A ge:68 Y S ex:Female Date:06/01/2024 Address:[address] [place] [id number] Pcp:Nguyễn Haji Subjective: * Chief Complaints: * 1 . Multum To Medispan Conversion Encounter. * Medical History: * Medications: T aking Multivitamin , Notes to Pharmacist: *Please review and pick correct strength-formulation from Medispan options. If intended option is not shown, discontinue and re-order from Quick Search*, Taking Levothyroxine Sodium , Notes to Pharmacist: *Please review and pick correct strength-formulation from Medispan options. If intended option is not shown, discontinue and re-order from Quick Search*, Taking Calcium-Vitamin D , Notes to Pharmacist: *Please review and pick correct strength-formulation from Medispan options. If intended option is not shown, discontinue and re-order from Quick Search*, Taking Magnesium , Notes to Pharmacist: *Please review and pick correct strength-formulation from Medispan options. If intended option is not shown, discontinue and re-order from Quick Search* Objective: * Vitals: * Physical Examination: Assessment: Plan: * Treatment: * Images: * Electronic signature of Shanta jimenez Migration on 01/23/2025 at 04:47 AM CDT Sign off status: Pending * Provider: Cynthia Zambrano Date: 08/02/2023 Generated for Farzaneh sepulveda/Rebecca/Hiro on: 01/23/2025 04:47 AM CDT
--- OUTSIDE RECORDS SUMMARY | 2025-01-23 04:47 | XMS_ITS ---
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 Malignant neoplasm of thyroid gland 07/21/2016 Overview (09/23/2016): Malignant neoplasm of thyroid gland Postoperative hypothyroidism 07/21/2016 Overview (09/23/2016): Postoperative hypothyroidism Pseudophakia of both eyes Macular pucker, left eye Current Treatment and Therapy Plans No current plan information found. Past Treatment and Therapy Plans No past plan information found. Lifetime Dose Tracking * Chemical Lifetime Dose Automatic Entry Manual Entr y Fluoro Time 0.001 minutes 0.001 minutes 0 minutes Air kerma at the reference point (Ka,r) 0.001 mGy 0 .001 mGy 0 mGy Resolved Problems Problem Noted Date Diagnosed Date Resolved Date Morbid obesity due to excess calories 12/30/2016 09/04/2017
--- OUTSIDE RECORDS SUMMARY | 2025-01-23 04:47 | XMS_ITS | Patient Health Record ---
Author Organization [facility] Address [address] [place], [place] [address] Care Team Providers Care Matchbook Maker Name Role Phone Nguyễn Haji Primary Care Provider Terell Dowd Unavailable [phone] Migration, Provider Unavailable Unavailable Reason For Referral No Information [...] discontinue and re-order from Quick Search* Active Problems Problem Type SNOMED Code ICD Code Onset Dates Problem Status W/U Status Risk Notes Problem Malignant tumor of thyroid gland (191888330) Malignant neoplasm of thyroid gland (193) Active confirmed follicular ca left thyroid Problem Goiter (4843117) Goiter NOS (240.9) Active confirmed Problem Dysfunction of eustachian tube (88086262) Dysfunction of eustachian tube (381.81) Active confirmed Problem Dysphonia (52099960) Dysphonia (784.42) Active confirmed Problem Thyroid nodule (339482886) Thyroid nodule (241.0) Active confirmed Encounters Encounter Location Date Provider Diagnosis [facility] [address] [place], [place] [address] 06/01/2024 Provider Migration Plan Of Treatment No Information Insurance Providers Payer Name Payer Address Payer Phone Subscriber Number Group Number Insured Name Patient Relationship to Insured Coverage Start Date Coverage End Date [facility] [address] [place] [address] [phone] [id number] Diana Ramsay Self - patient is the insured Medical (General) History Medical History History ICD Code Pertinent Medical History:: Eye problems, Throat/Neck problems, Anxiety/Depression, Thyroid problems, History of skin cancer, Surgical History Surgery Date(Month/Year) r thyroid lobectomy 1970 cholecystectomy C section skin cancer excision 1mole lymph nodes removed left thyroidectomy follicular thyroid ca 09-25
--- OUTSIDE RECORDS SUMMARY | 2025-01-23 04:47 | XMS_ITS | Continuity of Care Document ---
Author Organization [facility] Address [id number] [place] [address] [address] [place] [address] Phone Care Team Providers Care Historian Research Assistant Name Role Phone Jerry ZHANG, Noe Unavailable Unavaila ble Allergies, Adverse Reactions, Alerts Substance Reaction Status Criticality No Known Allergies Active No Inform ation Procedures Procedure Date AFTER CATARACT LASER SURGERY AFTER CATARACT LASER SURGERY OFFICE/OUTPATIENT VISIT, [facility] CATARACT SURG W/IOL, 1 STAGE CATARACT SURG W/IOL, 1 STAGE OFFICE/OUTPATIENT VISIT, [facility] OPHTHALMIC BIOMETRY Advance Directives Directive Yes / No Effective Date File Name No Information Encounters Encounter Description Practice Location Reason(s) For Visit Diagnoses Date Provider Providers Copied on Encounter [facility], [address] [place] [address], [place], [place], [id number], tel:[phone] [facility] No Information 9 Jerry Liu. [address] [facility], [address], [place], [place], [id number], [place]. tel:[phone] Referring Provider: Noe jin, [address], [place], [address] . tel:[phone] [facility], [address] [place] [address] [address], [place], [place], [id number], tel:[phone] [facility] No Information 9 Jerry Liu. [address], [place], [place], [id number], [place]. tel:[phone] Referring Provider: Noe jin, [address], [place], [address] . tel:[phone] OFFICE/OUTPA TIENT VISIT, [facility], [address] [place] [address], [id number], tel:[phone] [facility] Yag Cap (chief complaint) Tear film insufficiency of bilateral lacrimal glandsPuckeri ng of macula, left eyePresence of intraocular lensOther secondary cataract, bilateralVitr eous degeneration, bilateralDerm atochalasis of unspecified eye, unspecified eyelid 9 Jerry Noe. [address], [place], [place], [id number], . tel:[phone] Referring Provider: Noe jin, [address], [address] . tel:[phone] [facility], [address] [place] [address], [id number], tel:[phone] [facility] No Information 7 Jerry Meekl. [address], [address], [place], [place], [id number], . tel:[phone] Referring Provider: Noe jin, [address], [place], [address] . tel:[phone] [facility], [address] [place] [address], [id number], tel:[phone] [facility] No Information 7 Jerry Meekl. [address], [address] [place], [address], . tel:[phone] Referring Provider: Noe jin, [address], [place], [address] . tel:[phone] OFFICE/OUTPA TIENT VISIT, NEW [facility], [address], [place], [place], [address], tel:[phone] [facility] No Information 7 Arcenionormanatalie Liu. [address], [place], [place], [address], [place]. tel:[phone] Referring Provider: Noe jin, [address], [place], [address] . tel:[phone] Family History Family Member Type Diagnosis Age At Onset Problem (finding) No family history of Di abetes mellitus Problem (finding) No family history of Hy pertension Problem (finding) No family history of Gl au[place] Mother Problem (finding) degenerative disorder o f macula Payers Payer name Insurance type Covered libertarian ID Authoriza tion(s) [facility] [id number] Social History Type Description Quantity Date Captured Comments Sex Female Smoking Status No Information Chief Complaint And Reason For Visit No Information Reason For Referral Reason For Referral No Information History Of Present Illness Encounter Date Complaint History Of Prese nt Illness Yag Cap The 63 year old female presents for evaluation of Yag Cap in the right eye and left eye. It started about 2 month(s) ago. The symptom is constant. The condition is significant. Pt reports not being able to see well at night while driving. DST isn't clear. She also has a temp ache on OD side. Started on MondayOctober 20, comes and goes. Functional Status Date Functional Assessmen t No Information Instructions Date Instruction Additional Infor mation Impression/Plan Related to [place] tochalasis of unspecified eye, unspecified eyelid Impression/Plan Related to Vitre ous degeneration, bilateral Impression/Plan Related to Other secondary cataract, bilateral Impression/Plan Related to Prese nce of intraocular lens Impression/Plan Related to Pucke ring of macula, left eye Impression/Plan Related to Tear film insufficiency of bilateral lacrimal glands Assessments Type Assessment Date No Information Patient Care Teams Name Effective Dates (start - stop) Status Members No Information
--- OUTSIDE RECORDS SUMMARY | 2025-01-23 04:47 | XMS_ITS | Clinical Summary ---
Author Organization [facility] Address [address], [facility] [address] [place] [address] Phone Care Team Providers Care Supervisor Hot Strip Mill Name Role Phone Nguyễn Haji DO Primary Care Provider Unava ilable Allergies No known active allergies Medications lisinopril (PRINIVIL, ZESTRIL) 10 MG Tablet Take 1 Tab by mouth. Active levothyroxine (SYNTHROID) 175 MCG Tablet Take 175 mcg by mouth. 10/12/2016 Active Estradiol 10 MCG Tablet 10 mcg. 12/16/2016 Active diclofenac (VOLTAREN) 75 MG Tablet Delayed Response 75 mg. 07/21/2016 Active escitalopram (LEXAPRO) 10 MG Tablet 10 mg. 02/27/2009 Active ALPRAZolam (XANAX) 0.25 MG Tablet 0.25 mg. 07/21/2016 Active Cholecalciferol (VITAMIN D3) 5000 units Capsule Take 5,000 Units by mouth. 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 02/22/2019 Mass of spine 02/22/2019 Demyelinating disease of central nervous system 02/22/2019 Family History Medical History Relation Name Comments Cancer Father Cancer Mother Relation Name Status Comments Father Mother Social History Tobacco Use Types Packs/Day Years Used Date Smoking Tobacco: Never Smokeless Tobacco: Never Alcohol Use Standard Drinks/Week Comments Yes 0 (1 standard drink = 0.6 oz pur e alcohol) Occassionally AUDIT-C Answer Date Recorded Frequency of Alcohol Consumption Never 02/22/2019 Average Number of Drinks Not on file 019 Frequency of Binge Drinking Not on file 11/2018 PHQ-2 Answer Date Recorded PHQ-2 Score 0 02/22/2019 Comments Unknown Sex and Gender Information Value Date Recorded Sex Assigned at Not on file Legal Sex Female 2:03 PM CDT Gender Identity Not on file Sexual Orientation Not on file Last Filed Vital Signs Vital Sign Reading Time Taken Comments Blood Pressure 140/86 07/29/2019 1:33 PM WAREHOUSE ORDER FILLER Pulse 88 07/29/2019 1:33 PM WAREHOUSE ORDER FILLER Temperature 36.3 C (97.4 F) 07/29/2019 1:33 PM WAREHOUSE ORDER FILLER Respiratory Rate 18 07/29/2019 1:33 PM WAREHOUSE ORDER FILLER Oxygen Saturation 99% 07/29/2019 1:33 PM WAREHOUSE ORDER FILLER Inhaled Oxygen Concentration - - Weight 141.5 kg (312 lb) 07/29/2019 1:33 PM WAREHOUSE ORDER FILLER Height 167.6 cm (5' 6) 07/29/2019 1:33 PM WAREHOUSE ORDER FILLER Body Mass Index 50.36 07/29/2019 1:33 PM WAREHOUSE ORDER FILLER Plan of Treatment Health Maintenance Due Date Last Done Comments Hepatitis C Virus (HCV) Screening 1955 SARS-COV-2 Immunization (#1) 09/04/1959 Pneumococcal Immunization (5 0+ years) (1 of 2 - PCV) 1973 Zoster Immunization (1 of 2) 1973 Cologuard 09/04/1999 Colonoscopy 09/04/1999 Colorectal Cancer Screening 09/04/1999 Immunochemical Fecal Occult Blood 09/04/1999 Influenza Immunization (#1) 2025 04/16/2019 Respiratory Syncytial Virus (RSV) Immunization (Adult) (1 - 1-dose 75+ series) 2029 DTaP/Tdap/Td Immunization Discontinued 11/11/2014 TdaP Immunization Completed 11/11/2014 Hepatitis B Immunization Aged Out No longer eligible based on patient's age to complete this topic Human Papillomavirus (HPV) Immunization Aged Out No longer eligible b ased on patient's age to complete this topic Meningococcal Immunization (ACWY) Aged Out No longer eligible based on patient's age to complete this topic Rotavirus Immunization Aged Out No lo nger eligible based on patient's age to complete this topic Insurance [facility] Care Teams Supervisor Hot [employer] Mill Relationship Specialty Start Date End Date Nguyễn Haji DO PCP - General Family Medicine 02/08/19
--- OUTSIDE RECORDS SUMMARY | 2025-01-23 04:47 | XMS_ITS | Clinical Summary ---
Author Organization [facility] Address [address] [place] [address] Care Team Providers Care Child Adolescent Psychiatrist Name Role Phone Ariane Jerome MD Unavailable [phone] Grey Carl MD Unavailable [phone] Erci Ruth MD Primary Care Provider [phone] Allergies Active Allergy Reactions Criticality Noted Date Comments Adhesive Tape-Silicones Rash Medium 02/25/2014 Medications ALPRAZolam (XANAX) 0.25 mg tablet take 1 tablet by oral route 3 times every day 0 0 07/21/19 17 Active escitalopram (LEXAPRO) 10 mg tablet Take one by mouth one time per day 0 0 02/28/20 09 Active lisinopril (PRINIVIL,ZEST RIL) 20 mg tablet 07/29/19 18 Active cholecalcifero l (VITAMIN D-3) 5,000 unit capsule Take 1 capsule (5,000 Units total) by mouth daily Active estradiol (VAGIFEM) 10 mcg tablet 1 tablet (10 mcg total) daily Active gabapentin (NEURONTIN) 600 mg tablet START WITH 1 TABLET BY MOUTH EVERY NIGHT AT BEDTIME AND INCREASE UP TO TWICE DAILY AFTER 3 DAYS OF TOLERATING DOSE 02/15/20 22 Active levothyroxine (Synthroid) 150 mcg tablet TAKE 1 TABLET(150 MCG) BY MOUTH DAILY 90 tablet 1 03/02/20 23 Active atorvastatin (LIPITOR) 40 mg tablet 10/22/19 25 Active vibegron (GEMTESA ORAL) Take by mouth A ctive cranberry extract 500 mg capsule 500 mg. 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 Malignant neoplasm of thyroid gland 07/21/2016 Overview (09/23/2016): Malignant neoplasm of thyroid gland Postoperative hypothyroidism 07/21/2016 Overview (09/23/2016): Postoperative hypothyroidism Pseudophakia of both eyes Macular pucker, left eye Resolved Problems Problem Noted Date Diagnosed Date Resolved Date Morbid obesity due to excess calories 12/30/2016 09/04/2017 Encounters Date Type Department Care Team Description 01/17/2025 2:00 PM CDT Office Visit [facility] [address] [place] [address] [phone] Non-seasonal allergic rhinitis, unspecified trigger (Primary Dx) 01/15/2025 1:30 PM CDT Office Visit [facility] [address] [place] [address] [phone] Janis Torrez NP Non-seasonal allergic rhinitis, unspecified trigger (Primary Dx); Phantosmia 01/14/2025 Telephone [facility] [address] [place] [address] [place] [address] Blake Odell MD 01/13/2025 Telephone [facility] [address] [place] [address] Blake Odell MD from Last 3 Months Immunizations Immunization Administration Dates Next Due Influenza, Quadrivalent, Split, Intramuscular Influenza, Quadrivalent, Spl it, Preservative Free, Intramuscular 04/16/2019,03/26/2018 Tdap 11/11/2014 Surgical History Surgery Date Site/Laterality Comments CHOLECYSTECTOMY 06/19/2006 - 06/18/2007 OTHER SURGICAL HISTORY 06/19/1972 - 06/18/1973 rt side cold nodule of the thyroid benign: rt lobe resection THYROIDECTOMY 09/24/2008 for LfttThyroid Follicular Carcinoma MELANOMA RESECTION 06/19/2000 - 06/18/2001 melanoma on the rt arm: s/p surgical removal of the melanoma and lymph node; Melanoma Rt Arm: Removed w/nodes from arm//Dr Blake Wing Oncologist HYSTEROSCOPY W/ POLYPECTOMY 01/23/2018 HSC/Endocervical polypectomy x2/D&C SECTION 1982,1987 x2 CATARACT EXTRACTION W/ INTRAOCULAR LENS IMPLANT Bilateral 10/2017 OS, 11/2017 OD SPINE SURGERY 06/19/2008 - 06/18/2009 cervical disc rupture repair REPLACEMENT TOTAL KNEE 11/17/2009 - 12/16/2009 PARS PLANA VITRECTOMY W/ REPAIR OF MACULAR HOLE 12/17/2017 - 01/16/2018 Left Medical History Medical History Date Comments Hx Other Medical fatty tumor on back on lft side Hx Other Medical cervical disc r upture Hx Other Medical rt side cold no dule of the thyroid benign Hx Other Medical h/o panic attac ks and anxiety Post-surgical hypothyroidism BMI 45.0-49.9, adult (HCC) Melanoma (HCC) right arm Follicular thyroid carcinoma (HCC) stage 1, T1, Nx follicular carcinoma of left lobe; follicular carcinoma was 1.1x1x1 cm in size of the left lobe of the thyroid gland. with etracapsular extension and positive margin. There was no lymphvascular invasion; stage 1 , T1, Nx follicular carcinoma of left lobe. s/p total thyroidectomy 09/25. s/pRAI Ablation 10/2008 with 75 mCi of I131 Hypertension Endocervical polyp s/p HSC/endoc ervical polypectomy x2/D&C Pseudophakia of both eyes Macular pucker, left eye Dysphagia Phantosmia Family History Medical History Relation Name Comments Cancer Father Heart disease Father Hypertension Father Melanoma Father Breast cancer Mother Cancer -breast ; Colon cancer Mother Glaucoma Mother Hyperlipidemia Mother Hyperlipidemi a; Hypertension Mother Hypertension; Macular degeneration Mother Osteoporosis Mother Osteoporosis; Other Other No family histo ry of thyroid problem or thyroid cancer Relation Name Status Comments Father Mother Other Social History Tobacco Use Types Packs/Day Years Used Date Smoking Tobacco: Never Smokeless Tobacco: Never Tobacco Cessation:Counseling Given: Not Answered Alcohol Use Standard Drinks/Week Comments Yes 0 (1 standard drink = 0.6 oz pur e alcohol) Comments Unknown Sex and Gender Information Value Date Recorded Sex Assigned at Not on file Legal Sex Female 8:58 AM SPORTS TEAM MANAGER Gender Identity Not on file Sexual Orientation Straight 07/23/2020 11 :46 AM SPORTS TEAM MANAGER Obstetrics History Last Filed Vital Signs Vital Sign Reading Time Taken Comments Blood Pressure 112/76 02/28/2023 9:26 AM CDT Pulse 74 11/25/2011 2:10 PM CDT Temperature - - Respiratory Rate 20 01/17/2025 1:56 PM CDT Oxygen Saturation - - Inhaled Oxygen Concentration - - Weight 140.6 kg (309 lb 15.5 oz) 01/17/2025 1:56 PM CDT Height 165.1 cm (5' 5) 01/17/2025 1:56 PM CDT Body Mass Index 51.58 01/17/2025 1:56 PM CDT Plan of Treatment Health Maintenance Due Date Last Done Comments Colon Cancer Screening-Colonoscopy 1954 Fall Risk Assessment 1955 Hepatitis C Screening 1955 Hepatitis B Screening 1972 Depression Screening 03/06/2018 03/06/2017 Well Visit 65+ 09/04/2019 DTaP/Tdap/Td Vaccine (2 - Td or Tdap) 11/11/2024 11/11/2014 Influenza Vaccine (#1) 2025 , 03/08/2023, 04/02/2021, Additional history exists Breast Cancer Screening-Mammogram 04/25/2025 04/25/2024, 04/13/2023, 03/18/2021, Additional history exists Osteoporosis Screening-Bone Density Scan 08/08/2026 08/08/2024, 08/08/2024, 03/08/2022, Additional history exists Pneumococcal vaccine 65+ Completed 04/02/2021, 02/18 Zoster Vaccine Completed 04/19/2021, 02/11/2021 Insurance MEDICARE ADVANTAGE [facility] MEDICARE ADVANTAGE MEDICARE ADVANTAGE Care Teams Child Adolescent Psychiatrist Relationship Specialty Start Date End Date Eric Ruth MD [address] [facility] [facility] [address] [place] [address] PCP - General Internal Medicine 01/07/25 Ariane Jerome MD [address] [place] [address] Referring Physician Ophthalmology 07/26/20 Grey Carl MD [address] [place] [address] Consulting Physician Ophthalmology 07/27/20
--- OUTSIDE RECORDS SUMMARY | 2025-01-23 04:47 | XMS_ITS | Encounter Summary ---
Author Organization [facility] Address [address] [place] [address] Care Team Providers Care Log Rider Name Role Phone Nguyễn Haji DO Primary Care Provider [phone] Encounter Details Date Type Department Care Team (Late st Contact Info) Description 04/05/2006 Outpatient Historical [facility] MRI DEPT Loc Villa MD [address] [place] [phone] Other Chronic Cystitis (Primary Dx) Social History Tobacco Use Types Packs/Day Years Used Date Smoking Tobacco: Never Assessed Comments Unknown Sex and Gender Information Value Date Recorded Sex Assigned at Female 04/21/2024 9:24 AM LICENSE DISTRIBUTOR Legal Sex Female 5:21 AM LICENSE DISTRIBUTOR Gender Identity Female 04/21/2024 9:24 AM LICENSE DISTRIBUTOR Sexual Orientation Not on file documented as of this encounter Plan of Treatment Upcoming Encounters Date Type Department Care Team (Late Contact Info) Description 04/25/2025 11:00 AM LICENSE DISTRIBUTOR [facility] [address] [facility] [address] [place] [address] Jony Crockett MD [address] [facility] [address] [address] documented as of this encounter Procedures Procedure Name Priority Date/Time Associated Diagnosis Comments POC CREATININE Routine 04/05/2006 12:13 PM CDT documented in this encounter Results * POC CREATININE (04/05/2006 12:13 PM CDT) CREATININE POC 0.9 0.6 - 1.3 mg/dL INTERFACE SYSTEM 04/05/2006 12:1 3 PM CDT us Loc Villa MD POINT OF CARE TESTING Final Result INTERFACE SYSTEM Refer to clinic/hospital department documented in this encounter Visit Diagnoses Diagnosis Other chronic cystitis- Primary documented in this encounter Care Teams Log Rider Relationship Specialty Start Date End Date Nguyễn Haji DO [address] [place] [address] PCP - General 02/18/09 documented as of this encounter
--- OUTSIDE RECORDS SUMMARY | 2025-01-23 04:47 | XMS_ITS | Clinical Summary ---
Author Organization [facility] Address [address] [place] [address] Care Team Providers Care Assistant Associate Professor Name Role Phone Zena Ahumada MARIS Primary Care Provider [phone] Allergies No known active allergies Medications SYNTHROID 175 MCG tablet 175 mcg every morning. 1 Active Estradiol (VAGIFEM) 10 MCG vaginal tablet Activ e Cholecalciferol (VITAMIN D) 125 MCG (5000 UT) Cap Active Diclofenac-miSOP ROStol (ARTHROTEC OR) Take 75 mg by mouth daily as needed. Active butalbital-aceta minophen-caffein e 50-325-40 MG tablet TAKE 1 TABLET BY MOUTH EVERY 4 HOURS NEEDED FOR HEADACHE 2 Active lisinopril 20 MG tablet 2 Active ALPRAZolam 0.25 MG tablet Take by mouth every 8 (eight) hours. Active escitalopram 10 MG tablet Take 1 tablet by mouth daily. Active vitamin B-12 (CYANOCOBALAMIN) 500 MCG tablet Take 500 mcg by mouth daily. Active methocarbamol 500 MG tablet take 1 tablet by oral route 3 times every day as needed for spasms 2 Active EMGALITY 120 MG/ML Solution Auto-injectorInd ications:Chronic migraine without aura without status migrainosus, not intractable Inject 1 pen into the skin every 30 (thirty) days. 3 mL 3 2 Active Active Problems Problem Noted Date Diagnosed Date Weight loss counseling, encounter for 10/01/2021 Vitamin D deficiency, unspecified 08/11/2021 Degeneration of cervical intervertebral disc History of malignant melanoma of skin 06/16/2021 Macular pucker, left eye 06/15/2021 Pseudophakia of both eyes 06/15/2021 COVID-19 vaccine series completed 06/15/2021 Anxiety 06/15/2021 Obesity, morbid, BMI 40.0-49.9 06/15/2021 Hormone replacement therapy (HRT) 06/15/2021 Primary osteoarthritis involving multiple joints 06/15/2021 Chronic migraine without aur a without status migrainosus, not intractable 06/15/2021 History of fusion of cervical spine 06/15/2021 Essential hypertension 02/25/2020 Mass of spine 02/22/2019 Polyp of cervix 12/25/2017 Urinary incontinence in female 12/30/2016 Postoperative hypothyroidism 07/21/2016 Overview (06/15/2021): Postoperative hypothyroidism Vaginitis and vulvovaginitis 07/01/2014 Atrophic vaginitis 12/03/2013 Resolved Problems Problem Noted Date Diagnosed Date Resolved Date Elevated glucose 08/11/2021 08/11/2021 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 02/22/2019 06/16/2021 Malignant melanoma of upper extremity ([facility]) 04/30/2018 06/15/2021 Papillary thyroid carcinoma ([facility]) 04/30/20 18 06/15/2021 Malignant neoplasm of thyroi d gland ([facility]) 07/21/2016 06/15/2021 Overview (06/15/2021): Malignant neoplasm of thyroid gland Immunizations Immunization Administration Dates Next Due Fluzone High Dose - >Age 65 (Prefilled Syringe) 03/17/2020 Influenza Adult (Generic) 04/02/2021,04/02/2021, 04/16/2019 Pneumococcal (Pneumovax 23) 04/02/2021 Pneumococcal (Prevnar 13) 03/17/2020 Shingrix 04/19/2021,02/11/2021 Tdap (Generic) 11/11/2014 Family History Medical History Relation Comments Cancer Father Skin cancers Heart Disease Father Cancer Mother colon and breast Relation Status Comments Father Maternal Grandfather Maternal Grandmother Mother Paternal Grandfather Paternal Grandmother Social History Tobacco Use Types Packs/Day Years Used Date Smoking Tobacco: Never Smokeless Tobacco: Never Tobacco Cessation:Counseling Given: No Alcohol Use Standard Drinks/Week Comments Yes 0 (1 standard drink = 0.6 oz pur e alcohol) 3 x a year PHQ-2 Answer Date Recorded PHQ-2 Score - If the patient scores above 3, please move on to questions 3-9 0 07/06/2021 Comments No Sex and Gender Information Value Date Recorded Sex Assigned at Not on file Legal Sex Female 7:54 PM CDT Gender Identity Female 06/14/2021 1:49 PM RETAIL EVENT ASSISTANT Sexual Orientation Straight 06/14/2021 1: 49 PM RETAIL EVENT ASSISTANT Last Filed Vital Signs Vital Sign Reading Time Taken Comments Blood Pressure 120/77 10/01/2021 10:24 AM CDT Pulse 58 10/01/2021 10:24 AM CDT Temperature 36.8 C (98.3 F) 10/01/2021 10:24 AM CDT Respiratory Rate 20 10/01/2021 10:24 AM CDT Oxygen Saturation 98% 10/01/2021 10:24 AM CDT Inhaled Oxygen Concentration - - Weight 132.9 kg (293 lb) 10/01/2021 10:24 AM CDT Height 165.1 cm (5' 5) 10/01/2021 10:24 AM CDT Body Mass Index 48.76 10/01/2021 10:24 AM CDT Plan of Treatment Health Maintenance Due Date Last Done Comments Hepatitis C 1972 RSV Immunization or 60+ Years (1 - Risk 60-74 years 1-dose series) 2014 Annual Medicare Wellness Visit 09/04/2019 Dexa Scan (General) 09/04/2019 COVID-19 Vaccine ( season) 2024 10/21/2021, 05/11/2021, 09/06/2020, Additional history exists Mammogram Screening 03/17/2024 03/17/2022 DTaP, Tdap and Td Vaccines (2 - Td or Tdap) 11/11/2024 11/11/2014 Colorectal Cancer Screening Colonoscopy (10 Years) 02/14/2028 02/13/2018 Pneumococcal Vaccine: 50+ Years Completed 04/02/2021, 03/17/2020 Zoster Vaccines Completed 04/19/2021, 02/11/2021 Meningococcal B Vaccine Aged Out No l onger eligible based on patient's age to complete this topic Meningococcal Vaccine Aged Out No gabby bishnu eligible based on patient's age to complete this topic RSV Immunizations Under 20 Months Aged Out No longer eligible based on patient's age to complete this topic Procedures Procedure Name Priority Date/Time Associated Diagnosis Comments MAMMOGRAM GENERIC (SCAN ORDER) Routine 03/17/2022 COLONOSCOPY GENERIC (SCAN ORDER) 02/13/2018 from Last 3 Months or Most Recently Relevant to Health Maintenance Results * MAMMOGRAM (03/17/2022) Anatomical Region Laterality Modality Other us Doc Med Group Scanned SCANNING Final Resu lt * COLONOSCOPY GENERIC (02/13/2018) 02/13/2018 Narrative 02/13/2018 Ordered by an unspecified provider. us Documents Scanned SCANNING Final Result from Last 3 Months or Most Recently Relevant to Health Maintenance Insurance [facility] Care Teams Assistant Associate Professor Relationship Specialty Start Date End Date Zena Ahumada FNP [address] [place] [address] PCP - General Nurse Practitioner Family 06/15/21
--- OUTSIDE RECORDS SUMMARY | 2025-01-23 04:47 | XMS_ITS | Patient Health Record ---
Author Organization [facility] Address [address] [place] [address] Care Team Providers Care Family Court Registrar Name Role Phone Raissa Nguyễn Primary Care Provider Matt Lynn Unavailable [phone] Clay Cook Unavailable Unavailable Reason For Referral No Information Medications Medication SIG (Take, Route, Fr equency, Duration) Notes Start Date End Date Status Escitalopram Oxalate Active Lisinopril Active Vagifem Active ALPRAZolam Active Topamax Active Vitamin D Active Social History Tobacco Use: Social History Observation Description Date Details (start date - stop date) Never Smoker NA - NA Tobacco Use/Smoking Question Answer Notes Are you a nonsmoker Tobacco use other than smoking: Question Answer Notes Are you an other tobacco user? No Problems Problem Type SNOMED Code ICD Code Onset Dates Problem Status W/U Status Risk Notes Problem Localized, primary osteoarthritis of the shoulder region (460872533) Primary osteoarthritis, left shoulder (M19.012) Active confirmed Problem Cervical radiculopathy (16279165) Radiculopathy, cervical region (M54.12) Active confirmed Problem Degeneration of cervical intervertebral disc (55572322) Other cervical disc degeneration at C5-C6 level (M50.322) Active confirmed Plan Of Treatment No Information Insurance Providers Payer Name Payer Address Payer Phone Subscriber Number Group Number Insured Name Patient Relationship to Insured Coverage Start Date Coverage End Date [facility] [address] [address] [place] [address] [id number] Diana Ramsay Self - patient is the insured Medical (General) History Medical History History ICD Code high blood pressure thyroid cancer urinary incontinence depression anxiety Surgical History Surgery Date(Month/Year) right thyroid node 1970 c section 1982 c section 1987 skin cancer removed 09/17 gall bladder 05/23 right knee replaced 10/27
[2025-01-23 05:11] LABS: NT Pro B Type Natriuretic Pept 112 pg/mL (19.9-100)
[2025-01-23] MEDS: NITROGLYCERIN SL 0.4 MG TABLET SUBLINGUAL (05:14)
--- NOTE | 2025-01-23 06:25 | ECG_ITS ---
Test Date: 2025-01-23 06:28:26 Measurements Intervals [place] Rate: 59 P: 40 W[place]: 207 QRS: 28 QRSD: 94 T: 8 QT: 414 QTc: 411 Interpretive Statements SINUS BRADYCARDIA INCOMPLETE RIGHT BUNDLE BRANCH BLOCK CONSIDER INFERIOR INFARCT, AGE INDETERMINATE ABNORMAL ECG Compared to ECG 01/23/2025 03:22:24 HEART RATE HAS DECREASED Electronically Signed On 01-23-2025 07:50:52 CDT by Tomas Butts D.O.
[2025-01-23 06:37] LABS: Influenza A QL RT-PCR Negative (Negative); Influenza B QL RT-PCR Negative (Negative); RSV RNA, RT-PCR Negative (Negative); SARS-CoV-2 RNA PCR Negative (Negative)
[2025-01-23 07:38] LABS: Troponin I < 0.012 ng/mL (0.000-0.034)
--- NOTE | 2025-01-23 09:25 | PC.NURSE ---
Patient arrived to IMU. Telemetry applied
[2025-01-23 09:55] LABS: Troponin I < 0.012 ng/mL (0.000-0.034)
--- NOTE | 2025-01-23 17:49 | P.HP_ITS ---
H&P: HPI History of Present Illness Date/Time: 01/23/25 17:49 Chief Complaint: Chest pain Narrative: 69-year-old female with history of metastatic melanoma, thyroid cancer status post thyroidectomy and radiation, CKD, arthritis, sciatica, migraines, anxiety, hypertension presents to [facility] ER on 01/23/2025 with complaint of chest pain. No cardiac history. She has no bobbin presser. She does not take a daily aspirin. She had an exercise stress test in the year 1999 which she reports was normal. Around 2:00 a.m. on the day of admission she she woke up in she was walking around her house when she felt a soreness on the left side of her chest but it seemed to radiate down from her neck. It also went into her left arm and at some point her left arm was numb. She reports she has had a history of surgery on her cervical spine and they have to do a repeat surgery. She had some associated dizziness. She does have anxiety and panic attacks sometimes and sometimes her anxiety condition manifest as somatic symptoms. She thought to take her p.r.n. benzodiazepine but decided to present to the ER instead. She reports she was given nitroglycerin and her pain resolved. In the ER serous after eating well on room air, afebrile, sinus rhythm, blood pressure 129/78. Chest x-ray was normal. EKG shows sinus bradycardia with incomplete right bundle branch block. Nonspecific T-wave abnormalities in the anterior leads. Troponin negative x3. She was given aspirin 324 mg chewable x1. Review of Systems Review of Systems: All systems reviewed & are unremarkable except as noted in HPI and below (HPI) REPLACED BY [facility] Past Medical History Medical History Migraine syndrome Dizziness History of anesthesia problem small airway Metastatic melanoma Thyroid cancer Arthritis Sciatica Migraine Anxiety Hypertension Surgical History Surgical History History of History of cataract extraction History of bilateral knee arthroplasty History of cholecystectomy H/O thyroidectomy Family History Family History Father Hypertension Congestive heart failure Acute myocardial infarction Skin cancer Mother Colorectal cancer Breast cancer Social History Social History Smoking status: Never smoker Alcohol intake: never Substance use: never Substance use type: does not use Do You Feel Safe in your Home?: Yes Lack of Transportation: No Lack of Food: Never True Current Housing: I Have Housing Concerned About Future Housing: No Difficulty Paying Gas/Electric Bills: No Difficulty Paying for Meds: No Currently Unemployed: No Education: Bachelor's Degree Difficulty w/ Childcare or Family Care: No Spiritual care concerns: No Meds Home Medications and Allergies Home Medications ?Medication ?Instructions ?Recorded ?Confirmed ?Type alprazolam 0.25 mg tablet 0.25 mg PO Q6H PRN Anxiety 03/03/24 01/23/25 History escitalopram oxalate 20 mg tablet 10 mg PO DAILY 03/03/24 01/23/25 History estradiol 0.01% (0.1 mg/gram) 1 appful vaginal WEEKLY 03/03/24 01/23/25 History vaginal cream gabapentin 300 mg capsule 600 mg PO HS 03/03/24 01/23/25 History levothyroxine 150 mcg tablet 125 mcg PO DAILY 03/03/24 01/23/25 History (Synthroid) lisinopril 20 mg tablet 20 mg PO HS 03/03/24 01/23/25 History atorvastatin 40 mg tablet 40 mg PO .bedtime #90 tabs 04/11/24 01/23/25 Rx fexofenadine 180 mg tablet 180 mg PO DAILY 01/23/25 01/23/25 History (Briana Allergy) vibegron 75 mg tablet (Gemtesa) 75 mg PO DAILY 01/23/25 01/23/25 History Allergies Allergy/AdvReac Type Severity Reaction Status Date / Time No Known Allergies Allergy Unknown Verified 01/23/25 09:26 Vital Signs Vital Signs - 24 hr 01/23/25 03:15 01/23/25 03:24 01/23/25 03:30 Temperature 98.6 F Pulse Rate 76 69 81 Respiratory Rate 16 17 Blood Pressure 184/90 H 184/90 H Pulse Oximetry 100 96 Oxygen Delivery Room Air 01/23/25 04:00 01/23/25 05:00 01/23/25 07:29 Temperature Pulse Rate 72 70 66 Respiratory Rate 18 15 16 Blood Pressure 149/82 H 135/50 L 125/72 Pulse Oximetry 94 95 95 Oxygen Delivery 01/23/25 09:45 01/23/25 11:45 01/23/25 12:00 Temperature 97.6 F 97.8 F Pulse Rate 64 60 68 Respiratory Rate 20 18 Blood Pressure 149/75 H 129/78 Pulse Oximetry 100 97 Oxygen Delivery 01/23/25 16:00 01/23/25 16:00 Temperature 98.6 F Pulse Rate 118 H 62 Respiratory Rate 18 Blood Pressure 98/62 L Pulse Oximetry 95 Oxygen Delivery Exam Const: General: comfortable and no acute distress Other: A&O x3 Eyes: Pupils: Equal, round and reactive pupils present Neck: Neck: supple Chest: Other: Slightly reproducible chest pain on deep palpation at the superior breast tissue Resp: Effort & Inspection: normal respiratory effort Auscultation: clear to auscultation bilaterally Cardio: Rate: regular rate Rhythm: regular rhythm GI: Inspection: non-distended GI Palp: Yes Soft to palpation : General: Yes bladder normal to palpation Neuro: Motor exam (neuro): 5/5 motor strength present throughout Extrem: General: no edema H&P: Results Labs Labs: Short CBC 01/23/25 Range/Units 03:26 WBC 7.7 (4.5-10.0) K/mm3 Hgb 12.5 (12.0-15.0) g/dL Hct 39.1 (37.0-47.0) % Plt Count 244 (150-375) k/mm3 BMP 01/23/25 03:26 Sodium 139 Potassium 3.9 Chloride 107 Carbon Dioxide 26 BUN 20 H Creatinine 1.36 H Glucose 109 Calcium 8.7 Cardiac Enzymes 01/23/25 01/23/25 01/23/25 Range/Units 03:26 07:10 09:27 Troponin I < 0.012 < 0.012 < 0.012 (0.000-0.034) ng/mL Liver Function 01/23/25 Range/Units 03:26 Total Bilirubin 0.4 (0.2-1.3) mg/dL AST 25 (14-36) U/L ALT 16 (6-35) U/L Alkaline Phosphatase 100 (38-126) U/L Albumin 3.7 (3.5-5.1) g/dL Assessment and Plan Assessment and plan (1) Hypertension: Qualifiers: Hypertension type: primary hypertension Qualified Code(s): I10 - Essential (primary) hypertension Code(s): I10 - Essential (primary) hypertension Status: Chronic (2) CKD (chronic kidney disease): Code(s): N18.9 - Chronic kidney disease, unspecified Status: Acute (3) Dizziness: Code(s): R42 - Dizziness and giddiness Status: Acute (4) Chest pressure: Code(s): R07.89 - Other chest pain Status: Acute (5) Left sided numbness: Code(s): R20.0 - Anesthesia of skin Status: Acute Plan 69-year-old female with history of metastatic melanoma, thyroid cancer status post thyroidectomy and radiation, CKD, arthritis, sciatica, migraines, anxiety, hypertension presents to [facility] ER on 01/23/2025 with complaint of chest pain. No cardiac history. She has no bobbin presser. She does not take a daily aspirin. She had an exercise stress test in the year 1999 which she reports was normal. Around 2:00 a.m. on the day of admission she she woke up in she was walking around her house when she felt a soreness on the left side of her chest but it seemed to radiate down from her neck. It also went into her left arm and at some point her left arm was numb. She reports she has had a history of surgery on her cervical spine and they have to do a repeat surgery. She had some associated dizziness. She does have anxiety and panic attacks sometimes and sometimes her anxiety condition manifest as somatic symptoms. She thought to take her p.r.n. benzodiazepine but decided to present to the ER instead. She reports she was given nitroglycerin and her pain resolved. In the ER serous after eating well on room air, afebrile, sinus rhythm, blood pressure 129/78. Chest x-ray was normal. EKG shows sinus bradycardia with incomplete right bundle branch block. Nonspecific T-wave abnormalities in the anterior leads. Troponin negative x3. She was given aspirin 324 mg chewable x1. ----- Upon chart review the patient has similar presentation in 2023. There is concern for a TIA so an MRI brain and neurology consultation were ordered. Patient was discharged on aspirin and statin. Her chief complaint this time is chest pain although, will make her NPO midnight and Lexiscan stress test in the morning. Otherwise, suggest continue to follow-up with her neurosurgeon for cervical spine issues. Admit to telemetry. Check orthostatics x1. Patient wishes to be full code. SCDs. Saline lock IV. Heart healthy diet. NPO midnight. Patient lives at home with her spouse. Independent at baseline. Hospitalist [facility] Advance Care Plan I have confirmed that the patient's Advanced Care Plan is present, code status is documented, or surrogate decision maker is listed in patient medical record.: Yes Medication Reconciliation I have utilized all available resources to obtain, update and review the patients current medications (includes all prescriptions, OTC, herbals, cannabis, and nutritional supplements).: Yes
[2025-01-23] MEDS: GABAPENTIN 300 MG CAPSULE 600 MG PO (20:19)
[2025-01-23] MEDS: ATORVASTATIN 40 MG TABLET PO (20:19)
[2025-01-23] MEDS: LORATADINE 10 MG TABLET PO (20:41)
[2025-01-23] MEDS: ESCITALOPRAM OXALATE 10 MG TABLET PO (20:41)
[2025-01-24] VITALS (16 sets, daily range): BP systolic 83–177; BP diastolic 50–91; PULSE 59–75; RESP 12–20; TEMP 36.4–36.9; O2SAT 61–99
--- NOTE | 2025-01-24 | EST_ITS ---
Patient Info Name: Diana Ramsay Age: 69 years : 1955 Gender: Female Ht: 65 in Wt: 302 lbs BSA: 2.59 m2 HR: 63 bpm BP: 141 / 82 mmHg Exam Date: 01/24/2025 6:22 AM Patient Status: I Admit Date: 01/23/2025 Exam Type: CA stress gayathri w NM A regadenoson stress test was performed. Staff Referring Physician: Dayanara Murry Attending Provider: Leonid Luciano Exercise Technologist: Mercedez Bonilla Exercise Physician: Tomas Butts DO Summary 1. 1. Negative lexiscan stress test for ischemic ST changes by ECG criteria. 2. 2. Baseline hypertension. 3. 3. Nuclear scan to follow and will be reported separately. Please correlate with it. 4. 4. Patient informed of the above results. Protocol: Lexiscan Stress ECG Details Stage: REST Duration (min): 0 min : 34 sec HR (bpm): 57 SBP (mmHg): --- DBP (mmHg): --- Stage: REST Duration (min): 5 min : 58 sec HR (bpm): 66 SBP (mmHg): 141 DBP (mmHg): 82 Stage: STAGE 1 Duration (min): 1 min : 0 sec HR (bpm): 93 SBP (mmHg): 141 DBP (mmHg): 82 Stage: RECOVERY Duration (min): 1 min : 0 sec HR (bpm): 85 SBP (mmHg): 168 DBP (mmHg): 94 Stage: RECOVERY Duration (min): 2 min : 0 sec HR (bpm): 83 SBP (mmHg): 168 DBP (mmHg): 94 Stage: RECOVERY Duration (min): 3 min : 0 sec HR (bpm): 82 SBP (mmHg): 148 DBP (mmHg): 90 Stage: RECOVERY Duration (min): 3 min : 22 sec HR (bpm): 82 SBP (mmHg): 148 DBP (mmHg): 90 Rest HR: 66 bpm Peak HR: 95 bpm Rest Sys BP: 141 mmHg Peak Sys BP: 168 mmHg Max Pred HR: 150 bpm % Max Pred HR: 63 % Target HR: 128 bpm Max RPP: 15,960 bpm*mmHg Termination Reason: Completed protocol Cardiac Symptoms: Shortness of breath, Chest discomfort Total Time: 1 min : 0 sec Rest Gonzalez BP: 82 mmHg Peak Gonzalez BP: 94 mmHg Total Dose: 0.4 mg Resting ECG Sinus rhythm, IRBBB. Stress ECG No ST changes. Arrhythmias None. Report Signatures
--- NOTE | 2025-01-24 11:30 | PC.NURSE ---
pt taken down for gayathri scan by w/c, she has her iphone with her
--- NOTE | 2025-01-24 12:54 | PC.NURSE ---
pt returned from gayathri scan
--- NOTE | 2025-01-24 13:12 | P.PNIM_ITS ---
Progress Note: A&P Assessment and Plan (1) Hypertension: Qualifiers: Hypertension type: primary hypertension Qualified Code(s): I10 - Essential (primary) hypertension Code(s): I10 - Essential (primary) hypertension Status: Chronic (2) CKD (chronic kidney disease): Code(s): N18.9 - Chronic kidney disease, unspecified Status: Acute (3) Chest pressure: Code(s): R07.89 - Other chest pain Status: Acute (4) Dizziness: Code(s): R42 - Dizziness and giddiness Status: Acute Plan 69-year-old female with history of metastatic melanoma, thyroid cancer status post thyroidectomy and radiation, CKD, arthritis, sciatica, migraines, anxiety, hypertension presents to [facility] ER on 01/23/2025 with complaint of chest pain. No cardiac history. She has no development administrator. She does not take a daily aspirin. She had an exercise stress test in the year 1999 which she reports was normal. Around 2:00 a.m. on the day of admission she she woke up in she was walking around her house when she felt a soreness on the left side of her chest but it seemed to radiate down from her neck. It also went into her left arm and at some point her left arm was numb. She reports she has had a history of surgery on her cervical spine and they have to do a repeat surgery. She had some associated dizziness. She does have anxiety and panic attacks sometimes and sometimes her anxiety condition manifest as somatic symptoms. She thought to take her p.r.n. benzodiazepine but decided to present to the ER instead. She reports she was given nitroglycerin and her pain resolved. In the ER saturating 96% on room air, afebrile, sinus rhythm, blood pressure 129/78. Chest x-ray was normal. EKG shows sinus bradycardia with incomplete right bundle branch block. Nonspecific T-wave abnormalities in the anterior leads. Troponin negative x3. She was given aspirin 324 mg chewable x1. ----- Upon chart review the patient has similar presentation in 2023. There was a concern for a TIA so an MRI brain and neurology consultation were ordered. Patient was discharged on aspirin and statin. With a complaint of chest pain on this admission. Ordered a Lexiscan stress test. Orthostatics negative. 01/24/2025: Rapid response called around 1300. Patient had returned from Lexiscan stress test. She had drank a Pepsi. Reported stomach cramps. Was sitting on the toilet for about 5 minutes, reports she was straining. She then felt dizzy and pulled the help cord. She was found sitting up on the toilet lethargic, diaphoretic, unresponsive for a few seconds. She denied chest pain, shortness of breath. She was taken back to the bed and felt better. No events on telemetry during this episode. Pending results of Lexiscan stress test. Will continue to monitor her on telemetry. Will obtain blood work now. Check orthostatic vital signs. Likely vasovagal. Patient wishes to be full code. Continue telemetry. SCDs. Saline lock IV. Heart healthy diet. Patient lives at home with her spouse. Independent at baseline. Subjective Date/time seen: 01/24/25 13:12 Interval history: Patient seen after rapid response. See assessment and plan. She reports feeling back to her baseline. No chest pain. No shortness of breath. Review of Systems Review of Systems: All systems reviewed & are unremarkable except as noted in HPI and below (Subjective) Exam Const: General: comfortable and no acute distress Other: A&O x3. Obese. HENMT: Mouth: Yes moist mucous membranes Eyes: Pupils: Equal, round and reactive pupils present Neck: Neck: supple Resp: Effort & Inspection: normal respiratory effort Auscultation: clear to auscultation bilaterally Cardio: Rate: regular rate Rhythm: regular rhythm GI: Inspection: non-distended GI Palp: Yes Soft to palpation Neuro: Motor exam (neuro): 5/5 motor strength present throughout Extrem: General: no edema Objective Data Vital Signs Vital Signs: Vital Signs - 24 hr 01/23/25 16:00 01/23/25 16:00 01/23/25 17:47 Temperature 98.6 F 98.0 F Pulse Rate 118 H 62 56 L Respiratory Rate 18 20 Blood Pressure 98/62 L 149/73 H Pulse Oximetry 95 98 Oxygen Delivery 01/23/25 19:09 01/23/25 19:10 01/23/25 19:49 Temperature 97.9 F Pulse Rate 71 61 59 L Respiratory Rate 18 Blood Pressure 170/76 H 168/73 H 149/69 H Pulse Oximetry 100 Oxygen Delivery 01/23/25 20:00 01/23/25 20:00 01/23/25 23:57 Temperature Pulse Rate 64 64 68 Respiratory Rate 18 18 Blood Pressure Pulse Oximetry 100 100 Oxygen Delivery Room Air Room Air 01/23/25 23:57 01/24/25 00:00 01/24/25 02:00 Temperature 97.9 F Pulse Rate 68 64 66 Respiratory Rate 16 Blood Pressure 151/51 H Pulse Oximetry 98 Oxygen Delivery 01/24/25 04:00 01/24/25 04:00 01/24/25 04:00 Temperature 98.4 F Pulse Rate 63 63 65 Respiratory Rate 16 18 Blood Pressure 121/55 L Pulse Oximetry 98 95 Oxygen Delivery Room Air 01/24/25 05:43 01/24/25 08:00 01/24/25 08:00 Temperature 98.2 F Pulse Rate 64 68 70 Respiratory Rate 20 Blood Pressure 125/70 Pulse Oximetry 99 Oxygen Delivery Intake/Output Intake/Output: Intake & Output 01/21/25 01/22/25 01/23/25 01/24/25 23:59 23:59 23:59 23:59 Intake Total 480 500 Balance 480 500 Meds/Results Medications: Active Medications Generic Name Dose Route Start Last Admin Trade Name Freq PRN Reason Stop Dose Admin Acetaminophen 650 mg 01/23/25 07:52 Acetaminophen 325 Mg Tablet PO Q4H PRN Mild Pain (1-3) or Fever Alprazolam 0.25 mg 01/23/25 12:32 Alprazolam (*Crx) 0.25 Mg Tablet PO Q6H PRN Anxiety Atorvastatin Calcium 40 mg 01/23/25 21:00 01/23/25 20:19 Atorvastatin 40 Mg Tablet PO 40 mg HS CONSUELO Administration Escitalopram Oxalate 10 mg 01/23/25 21:00 01/23/25 20:41 Escitalopram Oxalate 10 Mg Tablet PO 10 mg QHS CONSUELO Administration Gabapentin 600 mg 01/23/25 21:00 01/23/25 20:19 Gabapentin 300 Mg Capsule PO 600 mg HS CONSUELO Administration Levothyroxine Sodium 125 mcg 01/24/25 06:30 Levothyroxine Sodium 125 Mcg Tablet PO DAILY@0630 CONSUELO Lisinopril 20 mg 01/23/25 21:00 01/23/25 20:19 Lisinopril 20 Mg Tablet PO 20 mg HS CONSUELO Administration Loratadine 10 mg 01/23/25 21:00 01/23/25 20:41 Loratadine 10 Mg Tablet PO 10 mg QHS CONSUELO Administration Nitroglycerin 0.4 mg 01/23/25 07:53 Nitroglycerin Sl 0.4 Mg Tablet SUBLINGUAL Q5MIN PRN Chest Pain Radiology Results: ITS Impressions Chest X-Ray 01/23/25 05:47 Impression: Normal chest. Labs Labs: Laboratory Results - last 24 hr 01/24/25 13:06 POC Capillary Glucose 126 H
[2025-01-24] MEDS: LEVOTHYROXINE SODIUM 125 MCG TABLET PO (13:18)
--- NOTE | 2025-01-24 13:39 | PC.NURSE ---
pt found unresponsive on toilet after returning from gayathri scan, pt had rodriguez pallor, cold sweat and no response to sternal rub. Pt woke up after second sternal rub, she is aox3 at this time, moved from bathroom back to bed with dr patel arevalo in room for rapid, sugar of 126, pt resting at this time with no complaints. She states this did happen once at home before and she had to crawl to bed from the restroom.
[2025-01-24 14:23] LABS: Hematocrit 41.6 % (37.0-47.0); Hemoglobin 13.1 g/dL (12.0-15.0); Immature Granulocyte Percent A 0.4 % (0-0.5); Lymphocytes Absolute Auto 1.82 K/mm3 (0.9-3.2); Mean Corpuscular HGB Conc 31.5 g/dl (32-36); Mean Corpuscular Hemoglobin 29.0 pg (26-34); Mean Corpuscular Volume 92.2 fl (80-100); Nucleated Red Blood Cells Absolute Auto 0.000 K/mm3 (0.0-0.012); Nucleated Red Blood Cells Perc 0.0 % (0.0-0.2); Platelet Count Result 254 k/mm3 (150-375); Red Blood Count 4.51 M/mm3 (4.2-5.4); White Blood Count 6.7 K/mm3 (4.5-10.0)
[2025-01-24 14:31] LABS: Anion Gap 8 mmol/L (4-12); Blood Urea Nitrogen 18 mg/dL (7-17); Calcium 8.9 mg/dL (8.4-10.2); Carbon Dioxide 25 mmol/L (22-30); Chloride 105 mmol/L (98-107); Estimated CRCL calculation 52 ml/min; Estimated Glomerular Filt Rate 42; Glucose 138 mg/dL (65-110); Magnesium 2.1 mg/dL (1.6-2.3); Potassium 4.3 mmol/L (3.4-5.0); Sodium 138 mmol/L (137-145)
[2025-01-24] MEDS: SODIUM CHLORIDE 0.9% IV 1,000 ML 100 ML IV CONT (15:57)
[2025-01-24] MEDS: GABAPENTIN 300 MG CAPSULE 600 MG PO (20:28)
[2025-01-24] MEDS: ESCITALOPRAM OXALATE 10 MG TABLET PO (20:28)
[2025-01-24] MEDS: LORATADINE 10 MG TABLET PO (20:28)
[2025-01-24] MEDS: ATORVASTATIN 40 MG TABLET PO (20:28)
[2025-01-25] VITALS (9 sets, daily range): BP systolic 128–152; BP diastolic 64–76; PULSE 62–76; RESP 16–24; TEMP 36.6–36.7; O2SAT 95–96
[2025-01-25] MEDS: SODIUM CHLORIDE 0.9% IV 1,000 ML 100 ML IV CONT (03:18)
[2025-01-25 04:14] LABS: Hematocrit 38.2 % (37.0-47.0); Hemoglobin 12.2 g/dL (12.0-15.0); Immature Granulocyte Percent A 0.2 % (0-0.5); Lymphocytes Absolute Auto 2.06 K/mm3 (0.9-3.2); Mean Corpuscular HGB Conc 31.9 g/dl (32-36); Mean Corpuscular Hemoglobin 29.0 pg (26-34); Mean Corpuscular Volume 91.0 fl (80-100); Nucleated Red Blood Cells Absolute Auto 0.000 K/mm3 (0.0-0.012); Nucleated Red Blood Cells Perc 0.0 % (0.0-0.2); Platelet Count Result 234 k/mm3 (150-375); Red Blood Count 4.20 M/mm3 (4.2-5.4); White Blood Count 8.6 K/mm3 (4.5-10.0)
[2025-01-25 05:04] LABS: Anion Gap 3 mmol/L (4-12); Blood Urea Nitrogen 15 mg/dL (7-17); Calcium 8.3 mg/dL (8.4-10.2); Carbon Dioxide 25 mmol/L (22-30); Chloride 106 mmol/L (98-107); Estimated CRCL calculation 56 ml/min; Estimated Glomerular Filt Rate 45; Glucose 103 mg/dL (65-110); Magnesium 2.0 mg/dL (1.6-2.3); Potassium 3.9 mmol/L (3.4-5.0); Sodium 134 mmol/L (137-145)
[2025-01-25] MEDS: LEVOTHYROXINE SODIUM 125 MCG TABLET PO (05:40)
--- NOTE | 2025-01-25 09:49 | PM.DS ---
DS: Admitting Diagnosis Discharge Date 01/25/2025 Admitting Diagnosis Chest pain DS: Discharge Diagnosis Discharge Diagnosis (1) Hypertension: Qualifiers: Hypertension type: primary hypertension Qualified Code(s): I10 - Essential (primary) hypertension Code(s): I10 - Essential (primary) hypertension Status: Chronic (2) CKD (chronic kidney disease): Code(s): N18.9 - Chronic kidney disease, unspecified Status: Acute (3) Chest pressure: Code(s): R07.89 - Other chest pain Status: Acute DS: Summary Hospital Course Hospital Course: 69-year-old female with history of metastatic melanoma, thyroid cancer status post thyroidectomy and radiation, CKD, arthritis, sciatica, migraines, anxiety, hypertension presents to [facility] ER on 01/23/2025 with complaint of chest pain. No cardiac history. 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 She does not take a daily aspirin. She had an exercise stress test in the year 1999 which she reports was normal. Around 2:00 a.m. on the day of admission she she woke up in she was walking around her house when she felt a soreness on the left side of her chest but it seemed to radiate down from her neck. It also went into her left arm and at some point her left arm was numb. She reports she has had a history of surgery on her cervical spine and they have to do a repeat surgery. She had some associated dizziness. She does have anxiety and panic attacks sometimes and sometimes her anxiety condition manifest as somatic symptoms. She thought to take her p.r.n. benzodiazepine but decided to present to the ER instead. She reports she was given nitroglycerin and her pain resolved. In the ER saturating 96% on room air, afebrile, sinus rhythm, blood pressure 129/78. Chest x-ray was normal. EKG shows sinus bradycardia with incomplete right bundle branch block. Nonspecific T-wave abnormalities in the anterior leads. Troponin negative x3. She was given aspirin 324 mg chewable x1. ----- Upon chart review the patient has similar presentation in 2023. There was a concern for a TIA so an MRI brain and neurology consultation were ordered. Patient was discharged on aspirin and statin. With a complaint of chest pain on this admission. 01/24/2025: Lexiscan stress test negative for definite ischemia or infarct, left ventricular EF measuring 72%. The patient did not have any symptoms after admission. Based on the reproducible chest pain on deep palpation, her history of cervical spine degeneration, less likely this was an acute coronary event. As well, troponins negative. She does have follow-up with her spine surgeon. 01/24/2025: Rapid response called around 1300. Patient had [facility] from [employer] [facility] [facility]. She had drank a Pepsi. Reported stomach cramps. Was sitting on the toilet for about 5 minutes, reports she was straining. She then felt dizzy and pulled the help cord. She was found sitting up on the toilet lethargic, diaphoretic, unresponsive for a few seconds. No seizure activity noted. She denied chest pain, shortness of breath. She was taken back to the bed and felt better. No events on telemetry during this episode. She reports this has happened in the past when she ate after being on an empty stomach. After observation overnight, no events on telemetry. Patient had no further episodes and was feeling at her baseline still. She was given Education about preventing constipation, being careful while straining. Shortly after the aforementioned episode she had orthostatic blood pressure positive from supine to sitting. Administer normal saline. Afterwards, orthostatic vital signs negative. Her lisinopril has been held on discharge. She has been advised to check blood pressures twice per day and keep a log and bring back to her PCP within 1 week. She was agreeable. All questions and concerns were answered to satisfaction. She is discharged in stable condition to home with her . She is independent at baseline. She was full code during the admission. Time Spent with Patient Time attestation: Total time spent providing and/or coordinating discharge services: Exam Const: General: comfortable and no acute distress Other: A&O x3. Obese. HENMT: Mouth: Yes moist mucous membranes Eyes: Pupils: Equal, round and reactive pupils present Neck: Neck: supple Resp: Effort & Inspection: normal respiratory effort Auscultation: clear to auscultation bilaterally Cardio: Rate: regular rate Rhythm: regular rhythm GI: Inspection: non-distended GI Palp: Yes Soft to palpation Neuro: Motor exam (neuro): 5/5 motor strength present throughout Extrem: General: no edema DS: Data Data Completed and Pending Labs on day of discharge: Labs from last 24 hours 01/25/25 01/24/25 01/24/25 04:00 13:59 13:06 WBC 8.6 6.7 RBC 4.20 4.51 Hgb 12.2 13.1 Hct 38.2 41.6 MCV 91.0 92.2 MCH 29.0 29.0 MCHC 31.9 L 31.5 L RDW 15.2 H 15.4 H Plt Count 234 254 MPV 8.9 9.0 Immature Gran % (Auto) 0.2 0.4 Neut % (Auto) 63.5 60.6 Lymph % (Auto) 24.1 27.2 [place] % (Auto) 8.8 H 8.4 Eos % (Auto) 2.8 2.4 Baso % (Auto) 0.6 1.0 Lymph # (Auto) 2.06 1.82 [place] # (Auto) 0.8 H 0.6 Eos # (Auto) 0.2 0.2 Baso # (Auto) 0.1 0.1 Abs Immat Gran (auto) 0.02 0.03 Absolute Neuts (auto) 5.4 4.1 Absolute Nucleated RBC 0.000 0.000 Nucleated RBC % 0.0 0.0 Sodium 134 L 138 Potassium 3.9 4.3 Chloride 106 105 Carbon Dioxide 25 25 Anion Gap 3 L 8 BUN 15 18 H Creatinine 1.18 H 1.27 H Estim Creat Clear Calc 56 52 Estimated GFR 45 L 42 L Glucose 103 138 H POC Capillary Glucose 126 H Calcium 8.3 L 8.9 Magnesium 2.0 2.1 Discharge Plan Discharge Attending physician on discharge: Dayanara Murry Discharging Clinician: Dayanara Murry Patient Disposition: Home Activity: october shower Diet: heart healthy Patient Instructions: Antibiotic Form Patient Language: Guatemalan Stand Alone Forms: General Discharge Information Follow-up/Referrals: Faraz,MD Eric [Primary Care Provider] - 01/31/25 Discharge Medications: Continued atorvastatin 40 mg tablet 40 mg PO .bedtime Qty: 90 3RF alprazolam 0.25 mg tablet 0.25 mg PO Q6H PRN (Reason: Anxiety) levothyroxine [Synthroid] 150 mcg tablet 125 mcg PO DAILY gabapentin 300 mg capsule 600 mg PO HS estradiol 0.01 % (0.1 mg/gram) cream 1 appful VAGINAL WEEKLY Rx Instructions: uses on Monday escitalopram oxalate 20 mg tablet 10 mg PO DAILY fexofenadine [Briana Allergy] 180 mg tablet 180 mg PO DAILY Patient Comments: take for 2 weeks due to recent allergy test started 01/23 Discontinued lisinopril 20 mg tablet 20 mg PO HS Gemtesa 75 mg tablet 75 mg PO DAILY Date of admission: 01/23/25 07:53 Primary Care Provider: MichaelEric Admitting Provider: Leonid Luciano Attending physician on admission: Leonid Luciano Condition: Stable Hospitalist MIPS Heart Failure (Exclusion) Patient has history of Heart Transplant or Left Ventricular Assistive Device?: No IF YES, STOP HERE Heart Failure (Qualifier) Patient has current or prior documentation of LVEF less than or equal to 40%, or mod/servere depressed LVSF?: No IF NO, STOP HERE
== END 2025-01-25 11:03 | disposition home or self-care (01) ==
LOC: ANHED 04:45 → ANHIMU 09:42
PROVIDERS: Admitting Provider Internal Medicine; Emergency Provider Student in an Organized Health Care Education/Training Program; PCP Internal Medicine; Visit Provider General Practice
DX: R07.89 Other chest pain (principal); R42 Dizziness and giddiness; R20.0 Anesthesia of skin; I12.9 Hypertensive chronic kidney disease with stage 1 through stage 4 chronic kidney disease, or unspecified chronic kidney disease; N18.9 Chronic kidney disease, unspecified; I45.10 Unspecified right bundle-branch block; R00.1 Bradycardia, unspecified; E89.0 Postprocedural hypothyroidism; F41.9 Anxiety disorder, unspecified; Z85.850 Personal history of malignant neoplasm of thyroid; Z85.820 Personal history of malignant melanoma of skin; Z92.3 Personal history of irradiation; Z20.822 Contact with and (suspected) exposure to COVID-19
CPT/HCPCS: 36415; 71046; 78452; 80048; 80053; 82948; 83690; 83735; 83880; 84484; 85025; 85380; 85610; 85730; 87637; 93005; 93017; 96374; 99285; A9270; A9502; G0378; J2785; J7030

== ENCOUNTER 2025-05-23 11:00 | Outpatient (RCR) | payer MEDICARE, SELFPAY ==
--- NOTE | 2025-02-24 15:27 | OPREHPOC ---
Outpatient Therapy Plan of Care This is a Multidisciplinary Plan of Care that may contain components documented by all disciplines (PT, OT, and ST.) PT Goal 1 Goal / Goal Update Patient to demonstrate independence with HEP for improved self-reliance of symptom management. Target Visit 6 PT Problem 2 PT Problem #2 Pain PT Goal 1 Goal / Goal Update 1. Patient to decrease subjective reports of neck pain to <6/10 for 2 consecutive weeks for improved ADL tolerance. 2. Patient to decrease subjective reports of R shoulder pain to <6/10 with lateral reaching for improved ADL tolerance. 3. Patient to report 50% improvement in quantity and quality of sleep. Target Visit 12 PT Problem 3 PT Problem #3 Impaired Range of Motion PT Goal 1 Goal / Goal Update 1. Patient to demonstrate an increase of cervical ext AROM to 35 deg with minimal c/o pain to improve the ability to drink from a cup. 2. Patient to demonstrate an increase of CHUCHO cervical rotation AROM to 40 deg to improve safety with driving. 3. Pt to demonstrate an increase of R shoulder flexion AROM to >=160 deg to improve the ability to reach overhead. 4. Pt to demonstrate an increase of R shoulder ER functional reach to EOP to improve the ability to perform personal hygiene tasks. Target Visit 12 PT Problem 4 PT Problem #4 Impaired Strength PT Goal 1 Goal / Goal Update Patient to demonstrate CHUCHO shoudler strength >=4+/ 5 for improved functional stability required for ADLs. Target Visit 12
--- NOTE | 2025-02-24 15:27 | PTOPEVAL1 ---
Assessment and note entered by Ashley Geiger, PT Evaluation Information Assessment Status Evaluation ICD-10 Condition Codes (PT) Cervicalgia M54.2,Pain in right shoulder M25.511, Pain in left shoulder M25.512 Subjective Information Primary Complaint: Neck Pain History of current condition: Pt has h/o cervical fusion >10 years ago Pt reports current symptoms started about 6 months ago. She reports her neck with bother her with driving, notes turning her whole body to look behind her. Pt reports weird onset of smelling smoke since October, BACK's, and motion sickness. She is getting evaluating by ENT and they are ordering an MRI. Pt thinks she needs PT prior to authorization for another fusion. She also went to the ER recently because of soreness in the L shoulder/chest. Sxs made worse with: reaching to the side with R arm, personal hygiene, gardening, carrying groceries, picking up laundry basket. Sxs improved with: ice/heat CLOF: limited in ADLs, sleep disturbance, decreased ability to look in mirrors when driving PLOF: caring for her with h/o AR, Alzheimer's, UE fracture pt is R hand dominant Reported Pain Level Pain Score 4: Self Report Additional Pain Score Comments gardening, groceries, laundry basket worsen the neck and shoulder Assessment PT Clinical Summary Pt is a 69 year old female who presents to physical therapy with a primary complaint of neck and R shoulder pain > 6 months. Pt demonstrates B UE weakness, pain, decreased cervical and shoulder mobility, abnormal posture, and increased tissue tension that limit their ability to perform ADLs. She is self-reporting 52% disability due to symptoms per the NDI. Pt will benefit from skilled physical therapy to address the above listed deficits and return to PLOF. HEP instructed and written handout provided, EX tolerated well with no adverse effects to note post-session. Pt was educated on importance of adherence to HEP. Pt was also educated on anatomy, prognosis, home modalities, and PT POC. Plan of Care Interventions Aquatic Therapy,Hot Pack/Cold Pack,Manual Therapy, Neuro Re-education,Patient/Caregiver Education, Therapeutic Activities,Therapeutic Exercise,Self- Care/Home Management,Ultrasound PT Services Indicated Yes Treatment Frequency and 1-2x/wk for 12 sessions Duration These treatments will address the objective and functional deficits as defined above. The patient will be advanced safely and appropriately in order for the patient to progress towards his/her prior level of function. Additional exercises will be introduced and as well as a comprehensive home exercise program upon discharge, if needed, ?to ensure carryover of functional gains achieved in the clinic. This treatment plan has been reviewed and agreement upon by the patient.
--- NOTE | 2025-03-12 14:40 | PCPTNOTE ---
Pt canceled due to illness.
--- NOTE | 2025-03-28 14:37 | PCPTNOTE ---
Pt canceled due to headache today.
--- NOTE | 2025-04-24 13:12 | OPREHPOC ---
Outpatient Therapy Plan of Care This is a Multidisciplinary Plan of Care that may contain components documented by all disciplines (PT, OT, and ST.) PT Problem 1 PT Problem #1 Knowledge Deficit PT Goal 1 Goal / Goal Update Patient to demonstrate independence with HEP for improved self-reliance of symptom management. Target Visit 6 Progress Partially Met PT Problem 2 PT Problem #2 Pain PT Goal 1 Goal / Goal Update 1. Patient to decrease subjective reports of neck pain to <6/10 for 2 consecutive weeks for improved ADL tolerance. 2. Patient to decrease subjective reports of R shoulder pain to <6/10 with lateral reaching for improved ADL tolerance. 3. Patient to report 50% improvement in quantity and quality of sleep. update 04/24/2025: cont with this goal Target Visit 12 PT Problem 3 PT Problem #3 Impaired Range of Motion PT Goal 1 Goal / Goal Update 1. Patient to demonstrate an increase of cervical ext AROM to 35 deg with minimal c/o pain to improve the ability to drink from a cup. 2. Patient to demonstrate an increase of CHUCHO cervical rotation AROM to 40 deg to improve safety with driving. 3. Pt to demonstrate an increase of R shoulder flexion AROM to >=160 deg to improve the ability to reach overhead. 4. Pt to demonstrate an increase of R shoulder ER functional reach to EOP to improve the ability to perform personal hygiene tasks. update 04/24/2025: 1. met 2. cont with this goal 3. met 4. met Target Visit 12 PT Problem 4 PT Problem #4 Impaired Strength PT Goal 1 Goal / Goal Update Patient to demonstrate CHUCHO shoudler strength >=4+/ 5 for improved functional stability required for ADLs. 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 Target Visit 12 Progress Partially Met
--- NOTE | 2025-04-24 13:12 | PTOPPROG ---
Assessment and note entered by Teressa Ariza, PT Re-Evaluation Information Assessment Status Progress ICD-10 Condition Codes (PT) Cervicalgia M54.2,Pain in right shoulder M25.511, Pain in left shoulder M25.512 Subjective Information Primary Complaint: Neck Pain Pt reports she continue to feel the pain to her neck and R shoulder and mid back. She has a lot of personal stressors currently which seems to aggravate her pain due to her tensing up in the shoulder and neck muscles. Pain and stiffness in the neck continue to make driving difficult. She has difficulty lifting weighted objects overhead. She admits not being compliant with HEPs and have cancelled her appointments several times. Assessment PT Clinical Summary Pt received 7 treatment sessions of therapy and show gains in overall cervical and shoulder active ROM. She has only partially met her goals to this date due to multiple factors including personal stress factors, compliance with attending appointments and performing HEPs. Currently demos remaining deficits in R shoulder strength and continued pain to neck and R shoulder, scapular instability and muscle imbalance which impact safety with performing community navigation colt driving and dynamic gait. She will benefit from continued therapy to address deficits and perform pain free functional mobility. Plan of Care Interventions Aquatic Therapy,Electrical Stimulation,Hot Pack/ Cold Pack,Manual Therapy,Neuro Re-education, Patient/Caregiver Education,Therapeutic Activities ,Therapeutic Exercise,Self-Care/Home Management, Ultrasound Other Interventions Dry Needling PT Services Indicated Yes Treatment Frequency and 1-2x/wk for 12 sessions Duration These treatments will address the objective and functional deficits as defined above. The patient will be advanced safely and appropriately in order for the patient to progress towards his/her prior level of function. Additional exercises will be introduced and as well as a comprehensive home exercise program upon discharge, if needed, ?to ensure carryover of functional gains achieved in the clinic. This treatment plan has been reviewed and agreement upon by the patient.
== END 2025-05-25 23:59 | disposition home or self-care (01) ==
LOC: ANHPT 11:00
DX: M54.2 Cervicalgia (principal); M25.511 Pain in right shoulder; M25.512 Pain in left shoulder
CPT/HCPCS: 97035; 97110; 97112; 97113; 97140; 97161; 97530; 97750